=== PATIENT | male | born 1940 | race Caucasian/White ===

== ENCOUNTER 2016-08-26 20:14 | Emergency (ER) | payer MEDICARE, BC ==
[~2016-08-26] VITALS: Ht 172.7 cm; Wt 75.0 kg
[~2016-08-26 20:14] MED LIST: AMBIEN10 MG PO; CRESTOR 10MG10 MG PO; CRESTOR5 MG PO; DURAGESIC50 MCG/HR TD; FIORICET 325 MG1 TA1 PO; FIORICET 325 MG1 TAB; FIORICET W/CODE1 CA1 PO; FLOMAX 0.40.4 MG/CAP PO; FLOMAX0.4 MG PO; IRON; IRON65 M1 PO; LORTAB 5/500 501 TAB PO; MARCAINE 0.5%; MORPHINE 10M10 MG/ML IJ; MUSCLE RELAXER; NEURONTIN300 MG/CAP PO; NORCO 325 MG-51 TAB PO; OXYCODONE5 MG PO; PAIN PUMP; PAMELOR 10MG10 MG PO; PROSCAR 5MG5 MG PO; RESTORIL 77.5 MG/CAP; RESTORIL30 MG PO; ROXICODONE 55 MG/TAB PO; RYBIX ODT50 MG PO; ULTRAM 50MG TAB50 MG; ULTRAM 50MG TAB50 MG PO; VIT B 12; VITAMIN B12100 MCG PO; ZOLOFT 100MG100 MG PO
[2016-08-26 20:16] VITALS: BP 165/82; PULSE 72; TEMP 99.4
== END 2016-08-26 20:57 | disposition home or self-care (01) ==
LOC: COL.ER 20:14
DX: S80.861A Insect bite (nonvenomous), right lower leg, initial encounter (principal); G43.909 Migraine, unspecified, not intractable, without status migrainosus; E78.5 Hyperlipidemia, unspecified; N40.0 Benign prostatic hyperplasia without lower urinary tract symptoms; F32.9 Major depressive disorder, single episode, unspecified; F41.9 Anxiety disorder, unspecified; M19.90 Unspecified osteoarthritis, unspecified site; G89.29 Other chronic pain; M54.9 Dorsalgia, unspecified; M54.2 Cervicalgia; Z98.890 Other specified postprocedural states; W57.XXXA Bitten or stung by nonvenomous insect and other nonvenomous arthropods, initial encounter

== ENCOUNTER → 2018-09-12 | Outpatient (CLI) | payer MEDICARE, BC | LOC: COL.RAD 14:12 | DX: N43.3 Hydrocele, unspecified (principal); N50.89 Other specified disorders of the male genital organs ==

== ENCOUNTER 2019-03-01 10:42 | Emergency (ER) | payer MEDICARE, BC ==
[~2019-03-01] VITALS: Ht 172.7 cm; Wt 75.0 kg
[2019-03-01 10:46] VITALS: TEMP 98.3
[2019-03-01 11:40] VITALS: BP 108/60; PULSE 64
== END 2019-03-01 11:40 | disposition home or self-care (01) ==
LOC: COL.ER 10:42
DX: R51 Headache (principal); I10 Essential (primary) hypertension
CPT/HCPCS: J1100; J2270; J2550

== ENCOUNTER 2019-04-12 20:50 | Emergency (ER) | payer MEDICARE, BC ==
[~2019-04-12] VITALS: Ht 172.7 cm; Wt 75.0 kg
[2019-04-12] MEDS ORDERED: MOVANTIK25 MG PO (21:19)
[2019-04-12 21:55] LABS: ALBUMIN 3.6 gm/dL (3.5-5.0); BILIRUBIN,TOTAL 0.4 mg/dL (0.0-1.0); CALCIUM 8.5 mg/dL (8.4-10.2); CREATININE, serum 2.33 (0.66-1.25); TOTAL PROTEIN 6.5 gm/dL (6.4-8.2)
[2019-04-12 22:09] LABS: BASO # 0.1 (0.0-0.2); BASO % 0.8 % (0.0-2.0); EOS # 0.7 (0.0-0.7); EOS % 10.1 % (0-4.0); GRAN # 4.1 (1.4-6.5); GRAN % 62.4 % (42.2-75.2); HEMOGLOBIN 10.3 g/dl (13.5-18.0); LYMPH % 14.5 % (20.0-51.0); MEAN CELL VOLUME 93 fl (80.0-100.0); MEAN CORPUSCULAR HEMOGLOBIN 28 pg (27.0-31.0); MEAN CORPUSCULAR HGB CONC 30 g/dl (33.0-37.0); MEAN PLATELET VOLUME 10.8 fl (7.4-10.4); MONO # 0.8 (0.1-0.6); MONO % 11.9 % (1.7-9.3); PLATELET COUNT 195 K/mm3 (130-400); RED BLOOD COUNT 3.71 M/mm3 (4.20-5.60); REDCELL DISTRIBUTION WIDTH-CV 15.7 % (11.5-14.5)
[2019-04-12 22:13] LABS: HEMATOCRIT 34.3 % (42.0-52.0)
[2019-04-12 22:33] LABS: COLLECTION METHOD CLEAN CATCH
[2019-04-12 22:47] LABS: PH 5 (5-8); SQUAMOUS EPITHELIAL None Seen /hpf; URINE APPEARANCE Clear; URINE BACTERIA None Seen /hpf; URINE BILIRUBIN Negative (NEGATIVE); URINE BLOOD Negative (NEGATIVE); URINE COLOR Yellow; URINE GLUCOSE Negative (NEGATIVE); URINE KETONE Negative (NEGATIVE); URINE LEUKOCYTE ESTERASE Negative (NEGATIVE); URINE NITRATE Negative (NEGATIVE); URINE PROTEIN(semi-quant) Negative (NEGATIVE); URINE RBC 0-2 /hpf; URINE UROBILINOGEN Negative (NEGATIVE)
[2019-04-12 23:11] VITALS: BP 112/67; PULSE 68; TEMP 98.2
== END 2019-04-12 23:05 | disposition home or self-care (01) ==
LOC: COL.ER 20:50
PROVIDERS: Family Medicine
DX: N28.9 Disorder of kidney and ureter, unspecified (principal); G89.29 Other chronic pain; K59.00 Constipation, unspecified; M54.9 Dorsalgia, unspecified; N40.0 Benign prostatic hyperplasia without lower urinary tract symptoms
CPT/HCPCS: J2405; J7030

== ENCOUNTER 2019-06-12 16:07 | Inpatient (IN) | payer MEDICARE, BC ==
[~2019-06-12] VITALS: Ht 172.7 cm; Wt 71.4 kg
[~2019-06-12 16:07] MED LIST changes: +MOVANTIK25 MG PO
[2019-06-12 16:48] LABS: BASO % 0.4 % (0.0-2.0); EOS # 0.1 (0.0-0.7); EOS % 0.6 % (0-4.0); GRAN # 7.3 (1.4-6.5); GRAN % 81.4 % (42.2-75.2); HEMATOCRIT 38.4 % (42.0-52.0); HEMOGLOBIN 12.2 g/dl (13.5-18.0); LYMPH # 0.8 (1.2-3.4); LYMPH % 8.5 % (20.0-51.0); MEAN CELL VOLUME 88 fl (80.0-100.0); MEAN CORPUSCULAR HEMOGLOBIN 28 pg (27.0-31.0); MEAN CORPUSCULAR HGB CONC 32 g/dl (33.0-37.0); MEAN PLATELET VOLUME 10.8 fl (7.4-10.4); MONO # 0.8 (0.1-0.6); MONO % 8.5 % (1.7-9.3); PLATELET COUNT 284 K/mm3 (130-400); RED BLOOD COUNT 4.39 M/mm3 (4.20-5.60); REDCELL DISTRIBUTION WIDTH-CV 15.7 % (11.5-14.5)
[2019-06-12 17:15] LABS: ALBUMIN 4.3 gm/dL (3.5-5.0); BILIRUBIN,TOTAL 0.7 mg/dL (0.0-1.0); C-REACTIVE PROTEIN 2.7 mg/dL (0.0-0.9); CALCIUM 8.8 mg/dL (8.4-10.2); CREATININE, serum 8.05 (0.66-1.25); POTASSIUM 5.1 mmol/L (3.4-5.0); TOTAL PROTEIN 8.1 gm/dL (6.4-8.2)
[2019-06-12] MEDS ORDERED: ZETIA 10MG TAB10 MG PO (17:17)
[2019-06-12] MEDS ORDERED: ZANAFLEX 4MG TAB4 MG PO (17:19)
[2019-06-12 17:31] LABS: TROPONIN-I 0.21 ng/mL (0.000-0.035)
[2019-06-12 18:26] LABS: INR 1.1 (0.8-3.0); PROTHROMBIN TIME 12.4 SECONDS (9.7-12.8)
[2019-06-12 18:29] LABS: PARTIAL THROMBOPLASTIN TIME 33.9 SECONDS (26.0-37.0)
[2019-06-12 19:50] LABS: COLLECTION METHOD CLEAN CATCH
[2019-06-12 19:59] LABS: MUCOUS Present /lpf; PH 5 (5-8); SQUAMOUS EPITHELIAL None Seen /hpf; URINE APPEARANCE Hazy; URINE BACTERIA Rare /hpf; URINE BILIRUBIN Negative (NEGATIVE); URINE BLOOD 2+ (NEGATIVE); URINE COLOR Yellow; URINE GLUCOSE Negative (NEGATIVE); URINE KETONE Trace (NEGATIVE); URINE LEUKOCYTE ESTERASE Negative (NEGATIVE); URINE NITRATE Negative (NEGATIVE); URINE PROTEIN(semi-quant) Negative (NEGATIVE); URINE RBC 0-2 /hpf; URINE UROBILINOGEN Negative (NEGATIVE)
[2019-06-12 20:06] LABS: MAGNESIUM 1.9 mg/dL (1.6-2.3); PHOSPHOROUS 8.1 mg/dL (2.5-4.5)
[2019-06-12 20:15] VITALS: BP 132/86; PULSE 138; TEMP 98.2
--- NOTE | 2019-06-12 20:30 | NUR ---
Arrived to IMCU 17. Assessment complete. Lungs clear. Heart sounds irregular. Bowels active x4. Pulses strong throughout. No edema noted. INT left forearm and right forarm without complications. Patient alert and orientated x2. Orientated to IMCU. called with security code. Whit SALGADO discussed medication rec with . All questions answered. Call light in reach.
[2019-06-12 20:37] LABS: TSH w REFLEX 1.41 uIU/mL (0.465-4.680)
[2019-06-12 20:40] LABS: CREATININE, serum 7.5 (0.66-1.25)
[2019-06-12] MEDS ORDERED: ULTRAM 50MG TAB50 MG PO (21:18)
[2019-06-12 21:30] VITALS: BP 109/86; PULSE 146
--- NOTE | 2019-06-12 21:46 | NUR ---
Patient BP 109/83. Per NAOMI Sherman give cardizem bolus 5mg and start drip. Verified by EMELY Kapoor.
[2019-06-12 22:00] VITALS: BP 144/81; PULSE 102
[2019-06-13] VITALS (10 sets, daily range): BP systolic 94–142; BP diastolic 52–71; PULSE 55–86; TEMP 97.5–98.7
--- NOTE | 2019-06-13 00:08 | NUR ---
Heparin restarted at 5 ml/hr per protocol
--- NOTE | 2019-06-13 01:06 | NUR ---
Patient heparin increased to 13.1 per Whit TAPE RECORDER REPAIRER. Changed to high dose protocol.
[2019-06-13 06:03] LABS: BASO % 0.5 % (0.0-2.0); EOS # 0.1 (0.0-0.7); EOS % 0.9 % (0-4.0); GRAN # 4.6 (1.4-6.5); HEMOGLOBIN 10.5 g/dl (13.5-18.0); LYMPH # 0.9 (1.2-3.4); LYMPH % 14.3 % (20.0-51.0); MEAN CELL VOLUME 88 fl (80.0-100.0); MEAN CORPUSCULAR HEMOGLOBIN 27 pg (27.0-31.0); MEAN CORPUSCULAR HGB CONC 31 g/dl (33.0-37.0); MEAN PLATELET VOLUME 11.7 fl (7.4-10.4); MONO # 0.8 (0.1-0.6); MONO % 11.8 % (1.7-9.3); PLATELET COUNT 251 K/mm3 (130-400); RED BLOOD COUNT 3.84 M/mm3 (4.20-5.60); REDCELL DISTRIBUTION WIDTH-CV 15.9 % (11.5-14.5)
[2019-06-13 06:04] LABS: HEMATOCRIT 33.7 % (42.0-52.0)
[2019-06-13 06:15] LABS: CALCIUM 8.2 mg/dL (8.4-10.2); CREATININE, serum 7.19 (0.66-1.25); POTASSIUM 4.6 mmol/L (3.4-5.0)
--- NOTE | 2019-06-13 06:26 | NUR ---
Patient heparin remains on high dose protocol at 13ml/hr. Cardizem at 5ml/hr with a pulse of 85 this AM. Otherwise uneventful night. Victor output monitored. Denies needs this AM. Call light in reach.
[2019-06-13 06:29] LABS: TROPONIN-I 0.181 ng/mL (0.000-0.035)
--- NOTE | 2019-06-13 07:05 | NUR ---
Report given to EMELY Moss
--- NOTE | 2019-06-13 07:15 | NUR ---
Report received from EMELY Avalos. pt in bed resting with eyes closed, awakens upon entry, michell needs, will continue to monitor.
--- NOTE | 2019-06-13 08:44 | NUR ---
Assessment charted. Pt rates headache pain at 7 or 8/10, will disucss with hospitalist during rounds as no PRN options are on board right now. Pt resting quietly, tolerating clearl liquid diet well. Oreintedx4, follwoing conversation well. Per Telemetry and monitor pt appears to have been in sinus rhythm for all fo shift. IVF to R a/c with eva simon infusing. L FA has heparin gtt infusing. Denies needs, will conitnue to monitor.
--- NOTE | 2019-06-13 09:16 | NUR ---
PK met with the patient to discuss discharge plan. The patient lives in [place] with his , Alexa (ph#[phone]). He reports independence with ADLs and does not have any DME. The patient's PCP is Dr. Hector Najera and he receives his medications at [facility]. He reports no difficulties obtaining his meds. The patient does not have advanced directives in EMR. He could not recall if he did have them completed. The patient would like to return home upon discharge. PK then contacted the patient's , Alexa, to update and review the above information. Alexa confirmed the above information. She states that the patient has been needing a little bit more help lately, but that she has been able to provide that assistance. She states that the patient does have a DPOA-HC completed and this his DPOA-HC is their daughter, Cee Marcelo. Alexa reports that she will get in contact with their tractor crane operator and have them fax a copy of his advanced directives to PK. PK provided Alexa with PK's phone and fax number. Alexa reports that the plan would be for the patient to return back home upon discharge. PT/OT have been ordered. PK to continue to follow.
--- NOTE | 2019-06-13 12:54 | NUR ---
Discontinue per dr. Keating and start PO meds
--- NOTE | 2019-06-13 15:09 | NUR ---
Called Dr. Osmin Keating regarding heparin gtt, they have decided to keep it going today as the kidney function is still "up in the air".
--- NOTE | 2019-06-13 16:40 | NUR ---
Dr. Solorio completed bedside loop recorder placement with labor delivery specialist staff. Pt tolerated well, resting quietly
--- NOTE | 2019-06-13 17:43 | NUR ---
Report called to EMELY Peter who will resume care of pt on the floor. Pt anticipating transfer to floor. Resting in bed, denies needs, will continue to monitor.
--- NOTE | 2019-06-13 18:07 | NUR ---
Pt brought up to room 310 via w/c with oil house attendant Yinka, all belongings brought to room, setlled pt in bed, Brittani to resume care.
--- NOTE | 2019-06-13 20:15 | NUR ---
Lab called and stated that HepXa was 0.94. Per protocol, heparin drip should be stopped for 1 hour, then restarted at a rate of 2 ml/hr less than current rate. Rate had been at 12 ml/hr. New rate will be at 10 ml/hr after holding for 1 hour. Heparin put on hold at this time.
--- NOTE | 2019-06-13 21:15 | NUR ---
Patient assessed at this time. Alert and oriented, with intermittent confusion. Easily redirected. Denies having pain and discomfort at this time. Peripheral IV to left forearm with NS running at 150 ml/hr. Heparin restarted at this time at 10 ml/hr per protocol. INT to left forearm. Denies SOB and dyspnea. On oxygen at 2 L/min via NC. Respirations even and unlabored. HRR. Telemetry in place. Dressing from loop recorder site CDI. Denies pain and discomfort to area. Capillary refill less than 3 seconds. Non-tenting skin turgor. BSAx4. Abdomen soft and non-tender. Indwelling youngblood catheter patent, and draining clear yellow urine via dependent drainage. No edema. Voices no questions, needs, or concerns at this time. High fall risk precautions in place. Resting in bed with call light within reach.
[2019-06-14 02:49] VITALS: BP 133/78; PULSE 72; TEMP 98.8
--- NOTE | 2019-06-14 03:43 | NUR ---
HepXa 0.58. No change in heparin drip at this time. Continues to run at 10 ml/hr. Recheck in 6 hours.
--- NOTE | 2019-06-14 05:28 | NUR ---
Continues to wear oxygen at 2 L/min via NC. Alert and oriented, occasionally gets confused but easily redirected. Indwelling youngblood catheter with clear yellow urine. NS continues to run at 150 ml/hr. Heparin drip at 10 ml/hr. Voices no questions, needs, or concerns at this time. Resting in bed with call light within reach. High fall risk precautions in place.
[2019-06-14 07:41] LABS: BASO % 0.3 % (0.0-2.0); EOS # 0.2 (0.0-0.7); EOS % 2.3 % (0-4.0); GRAN # 5.2 (1.4-6.5); GRAN % 75.9 % (42.2-75.2); LYMPH # 0.8 (1.2-3.4); LYMPH % 11.6 % (20.0-51.0); MEAN CELL VOLUME 89 fl (80.0-100.0); MEAN CORPUSCULAR HGB CONC 32 g/dl (33.0-37.0); MEAN PLATELET VOLUME 11.6 fl (7.4-10.4); MONO # 0.7 (0.1-0.6); MONO % 9.8 % (1.7-9.3); PLATELET COUNT 239 K/mm3 (130-400); RED BLOOD COUNT 3.25 M/mm3 (4.20-5.60); REDCELL DISTRIBUTION WIDTH-CV 16.1 % (11.5-14.5)
[2019-06-14 07:46] LABS: HEMATOCRIT 28.9 % (42.0-52.0); HEMOGLOBIN 9.1 g/dl (13.5-18.0); MEAN CORPUSCULAR HEMOGLOBIN 28 pg (27.0-31.0)
[2019-06-14 07:55] LABS: CALCIUM 7.9 mg/dL (8.4-10.2); CREATININE, serum 6.25 (0.66-1.25); POTASSIUM 4.5 mmol/L (3.4-5.0)
[2019-06-14 07:57] VITALS: BP 130/66; PULSE 74; TEMP 98
--- NOTE | 2019-06-14 08:20 | NUR ---
Pt awake and alert this morning, talkative, no C/O pain at this time, shift assessment complete, left Pt call light in reach, bed in lowest position.
--- NOTE | 2019-06-14 10:00 | NUR ---
Talked to Pt's spouse about his progress, answered all questions to her satisfaction. Transferred call to Pt after questions.
[2019-06-14 12:37] VITALS: BP 114/62; PULSE 68; TEMP 98.9
--- NOTE | 2019-06-14 13:47 | NUR ---
FOUND PT ON ROOM AIR AND SAT AT 88%. PLACED ON 1L NC.
--- NOTE | 2019-06-14 14:20 | NUR ---
Pt discharged to home, discussed discharge information with Pt and family, escorted Pt to entrance, assisted into vehicle, Pt left with family via private auto.
--- NOTE | 2019-06-14 16:45 | NUR ---
Talked to Pt's son, Stated the family was upset that the physician has not contacted the spouse to update her on his statis, transferred call to scalehouse attendant for resolution and contacted attending physician and let him know the family's request for an update.
--- NOTE | 2019-06-14 17:30 | NUR ---
Patient's son called the hospital and voiced frustration that family had not been updated with patient's status @1630. Patient's son on phone states his brother called this AM, but patient's was still concerned. I spoke with patient's nurse, who then called the hospitalist. I followed up with patient's son at this time. Son on phone voices understanding. States hospitalist called and answered all of his mother's questions. Patient's , Alexa's Patient's Son, Andrea's
--- NOTE | 2019-06-14 18:12 | NUR ---
Pt resting in the room, no complaints today, VS have remained stable.
[2019-06-14 19:51] VITALS: BP 147/71; PULSE 79; TEMP 98.2
--- NOTE | 2019-06-14 20:05 | NUR ---
Resting in bed. Assessment complete. Bases bilaterally dimished. Otherwise clear. Heart sounds normal. Bowels active x4. Pulses strong throughout. Bilateral lower leg edema +1. INT right forearm flushed. IV left forearm infusing NS at 125ml/hr and heparin at 10ml/hr as ordered. Denies pain. Victor to dependent drainage with catheter care complete. Incision to medical chest covered with dressing, CDI. Denies needs at this time. Call light in reach.
--- NOTE | 2019-06-14 22:06 | NUR ---
Resting in bed asleep. Call light in reach.
--- NOTE | 2019-06-14 23:35 | NUR ---
Resting in bed. Denies needs. Call light inreach.
[2019-06-15 00:15] VITALS: BP 100/40; PULSE 56; TEMP 98
[2019-06-15 03:59] VITALS: BP 142/68; PULSE 72; TEMP 98.7
--- NOTE | 2019-06-15 04:00 | NUR ---
Resting in bed. Denies needs. Call light in reach.
--- NOTE | 2019-06-15 06:33 | NUR ---
Patient had uneventful night. Resting in bed this AM. Call light in reach.
[2019-06-15 06:43] LABS: MEAN CELL VOLUME 87 fl (80.0-100.0); MEAN CORPUSCULAR HGB CONC 31 g/dl (33.0-37.0); MEAN PLATELET VOLUME 10.7 fl (7.4-10.4); PLATELET COUNT 237 K/mm3 (130-400); RED BLOOD COUNT 3.07 M/mm3 (4.20-5.60); REDCELL DISTRIBUTION WIDTH-CV 16.3 % (11.5-14.5)
[2019-06-15 06:45] LABS: HEMATOCRIT 26.8 % (42.0-52.0); HEMOGLOBIN 8.4 g/dl (13.5-18.0); MEAN CORPUSCULAR HEMOGLOBIN 27 pg (27.0-31.0)
[2019-06-15 06:52] LABS: ALBUMIN 2.9 gm/dL (3.5-5.0); BILIRUBIN,TOTAL 0.3 mg/dL (0.0-1.0); CREATININE, serum 5.85 (0.66-1.25); MAGNESIUM 1.7 mg/dL (1.6-2.3); POTASSIUM 4.4 mmol/L (3.4-5.0); TOTAL PROTEIN 5.7 gm/dL (6.4-8.2)
[2019-06-15 07:28] VITALS: BP 125/62; PULSE 66; TEMP 97.7
--- NOTE | 2019-06-15 07:39 | NUR ---
Report given to EMELY Read
[2019-06-15 11:29] VITALS: BP 139/98; PULSE 71; TEMP 98.5
[2019-06-15 16:36] VITALS: BP 120/62; PULSE 70; TEMP 98
--- NOTE | 2019-06-15 18:35 | NUR ---
Pt assessment completed and charted, medications administered per APR. Pt is alert, partially oriented, some confused conversation, increased confusion throughout day. Pt only complains of chronic Lt lower back pain which has worsened today. Unable to work with PT d/t back pain. PO pain medication ordered and administered per APR. Pt provided with hot pack. Pt states pain is still there but has improved. Pt receiving IVF @ 125ml/hr and hep gtt at 10ml/hr to LFA IV w/o complications. Hep XA within goal, no change to rate, will recheck in AM. Pt has youngblood catheter draining pale yellow urine, cath care provided. Pt on 2L NC, breathing has been even and unlabored. Pt denies any chest pain, N/V/D. Pt also has RFA INT IV that flushes w/o complications. No further needs expressed.
[2019-06-15 19:10] VITALS: BP 113/62; PULSE 70; TEMP 98.6
--- NOTE | 2019-06-15 19:40 | NUR ---
this nurse contacted Alexa Iniguezen, patients , gave update for this shift, all questions answered, no further needs at this time. Report given to EMELY Morales.
[2019-06-16] VITALS (7 sets, daily range): BP systolic 114–146; BP diastolic 55–70; PULSE 59–78; TEMP 98.3–99.6
--- NOTE | 2019-06-16 06:25 | NUR ---
PT IN BED WITH HOB ELEVATED TO 45 DEGREE ANGLE. DID 2 HOUR NEURO CHECKS AND NO CHANGES NOTED. PT WAS SLEEPING BUT EASILY AWAKEN AND THEN WENT BACK TO SLEEP. PT HAD BED ALARM ON AND CALL LIGHT WITHIN REACH.
[2019-06-16 07:19] LABS: CALCIUM 8.4 mg/dL (8.4-10.2); CREATININE, serum 6.04 (0.66-1.25); PHOSPHOROUS 6.9 mg/dL (2.5-4.5); POTASSIUM 4.5 mmol/L (3.4-5.0)
--- NOTE | 2019-06-16 09:56 | NUR ---
Public Records Officer received Advance Directives via fax then placed them in patient's chart.
--- NOTE | 2019-06-16 11:06 | NUR ---
Pt assessment completed and charted. Medications administered per MAR. Pt is A & partially oriented, pleasantly confused, cooperative with cares. Pt has LFA IV w/ NS @ 50ml/hr and hep gtt @10 ml/hr running w/o complications. Pt also has RFA INT IV that flushes w/o complications. pt currently on 2L NC, satting in upper 90s, will wean down as tolerated. pt has worked with PT twice today, using walker, ambulating well. Pt states his back pain is "ok" as "long as I'm laying here". Pt did received PRN [place] prior to working with therapy per pt request. Pt eating and drinking well. Breathing is even and unlabored. Pt on bowel regimen and has had BM today. This nurse has also talked with , Alexa to give update, all questions answered. No further concerns at this time.
--- NOTE | 2019-06-16 11:16 | NUR ---
Pt hep Xa came back at 0.21, rate increased to 11.5ml/hr. O2 decreased to 1LNC. Next hep Xa lab at 1530.
--- NOTE | 2019-06-16 15:04 | NUR ---
Pt assisted to bathroom and back to bed, using walker, minimal assist. gown changed again, per pt request. Pt had another BM. Belongings brought from , dropped at ER entrance, given to pt. Pt has spoken with on phone today. This nurse informed PARMJIT Shah that this nurse had talked with and given update and the was requesting an update from the physicians as well. No other concerns expressed at this time.
--- NOTE | 2019-06-16 15:21 | NUR ---
Warfarin Initial Dosing Pharmacy Note Ordering Provider: Saritha Keating MD Indication: Atrial fibrillation LABS: INR 1.1 (06/12/19) Recommendation: Will start with Warfarin 5 mg po qHS bridging with heparin drip. Pharmacy will continue to monitor daily INR levels.
--- NOTE | 2019-06-16 16:13 | NUR ---
Accounts Receivable Associate spoke with patient's , Alexa about PT's recommendation for a front wheeled walker. Alexa would like to call her sister this evening because she believes her sister has a walker they can use. Alexa reports if her sister does not have a walker, she will work with SW to obtain a walker. PK spoke with Alexa about Home Health Services. Alexa reports she is not sure if patient will need it and advised it would depend on if it's recommended by the Hospitalist. PK passed this along with PARMIJT Shah. PK to continue to follow.
[2019-06-17] VITALS (12 sets, daily range): BP systolic 103–157; BP diastolic 48–84; PULSE 61–74; TEMP 98.4–99
--- NOTE | 2019-06-17 04:45 | NUR ---
PATIENT HAS HAD AN UNEVENTFUL NIGHT. IN THE HS HE WAS READING LIKE A PORTALS OF PRAYER AND HIS BIBLE. PATIENT HAS DENIED ANY NEEDS OTHER THAN HELPING HIM FIND A CHAPTER IN THE BIBLE. PATIENT DID RECEIVE A PAIN PILL AT [facility] AND THAT SEEMED TO HELP WITH HIS PAIN BECAUSE HE HAS NOT NOTED ANY SINCE. HEP XA WAS IN RANGE/GOAL SO NO CHANGES WERE MADE AND SINCE IT WAS THE SECOND IN RANGE/GOAL, NEXT RECHECK IS THIS AM. WILL REPORT OFF TO DAY SHIFT UPON THEIR ARRIVAL
[2019-06-17 06:33] LABS: MEAN CELL VOLUME 87 fl (80.0-100.0); MEAN CORPUSCULAR HGB CONC 32 g/dl (33.0-37.0); MEAN PLATELET VOLUME 11.3 fl (7.4-10.4); PLATELET COUNT 297 K/mm3 (130-400); RED BLOOD COUNT 3.38 M/mm3 (4.20-5.60); REDCELL DISTRIBUTION WIDTH-CV 16.4 % (11.5-14.5)
[2019-06-17 07:05] LABS: HEMATOCRIT 29.5 % (42.0-52.0); HEMOGLOBIN 9.3 g/dl (13.5-18.0); MEAN CORPUSCULAR HEMOGLOBIN 28 pg (27.0-31.0)
[2019-06-17 08:29] LABS: CALCIUM 8.5 mg/dL (8.4-10.2); CREATININE, serum 6.04 (0.66-1.25); MAGNESIUM 1.7 mg/dL (1.6-2.3); POTASSIUM 4.2 mmol/L (3.4-5.0)
[2019-06-17 08:31] LABS: INR 1.2 (0.8-3.0); PROTHROMBIN TIME 13.6 SECONDS (9.7-12.8)
--- NOTE | 2019-06-17 11:07 | NUR ---
0900: Pt assessment completed and charted. Medications administered per APR. Pt sat in recliner for breakfast, has worked with therapy and walked. Pt states his back pain "is ok" at this time, denies needs for pain medication. Pt has LFA IV w/ NS @ 50 ml/hr and hep gtt running @ 11.5ml/hr. Pt on 1L NC, satting mid 90s, breathing is even and unlabored, denies SOB. Pt denies any dizziness, N/V/D. 2 BMs noted yesterday, refused need for prunes/hot water this morning. No other concerns at this time. 1015: Hep gtt on hold, IVF dc'd per [place]. Pt to have dialysis catheter placed this afternoon. Dr. Tejada has been in to visit with patient. Consent signed and on chart. No other needs at this time.
--- NOTE | 2019-06-17 11:47 | NUR ---
Consent signed and on chart for dialysis catheter placement. Pt states his back pain "is ok" and stated he woulnd't mind taking something for it. Pt received prn [place] per apr. Pt resting comfortably in bed, NPO for lunch. No other needs at this time.
--- NOTE | 2019-06-17 12:13 | NUR ---
First visit from the agricultural equipment sales manager. No needs right now.
--- NOTE | 2019-06-17 14:01 | NUR ---
Mannequin Wig Maker followed up with patient's , Alexa who advised she spoke with her daughter who has a like-new walker for patient. SW also followed up on Home Health. Alexa would like HH services for patient but would like time to review options. PK encouraged Alexa to look at Medicare.gov for list of options and agency ratings. PK will follow up on Home Health Choice tomorrow.
--- NOTE | 2019-06-17 14:19 | NUR ---
SEE MERGE FOR MEDICATION ADMINISTRATION TIMES AND INTRA AND POST SEDATION ASSESSMENTS.
--- NOTE | 2019-06-17 15:22 | NUR ---
Pt back from having dialysis catheter placed. RIJ dialysis catheter site is CDI, covered w/ gauze. Pt is drowsy, laying bed, arouses to name, denies any pain or discomfort. Pt on post op VS monitoring.
--- NOTE | 2019-06-17 18:41 | NUR ---
Pt up to eat dinner, VSS. Pt slept quite a bit after procedure. RIJ dialysis cath site is CDI. No further needs.
--- NOTE | 2019-06-17 19:40 | NUR ---
Patient assessed at this time. Alert and oriented with intermittent confusion. Reported level 5 pain to back. Given PRN [place] as requested for pain. Peripheral IVs to left and right forearms. Denies SOB and dyspnea. On oxygen at 1 L/min via NC. Respirations even and unlabored. LS CTA. Denies chest pain and discomfort, except to [facility] surgerical site. HRR. Telemetry in place. Capillary refill less than 3 seconds. Non-tenting skin turgor. Dressing to loop recorder site is CDI. Dressing to NDJ dialysis catheter is CDI. BSAx4. Abdomen soft and non-tender. Indwelling youngblood catheter patent, with clear yellow urine. 2+ edema BLE. Voices no questions, needs, or concerns at this time. Resting in bed with call light within reach. High fall risk precautions in place.
[2019-06-17 21:13] LABS: HEPATITIS B SURFACE ANTIGEN Negative (Negative)
[2019-06-17 21:14] LABS: HEPATITIS C VIRUS ANTIBODY Negative (Negative)
[2019-06-17 23:18] LABS: HEPATITIS B SURFACE ANTIBODY 10.6 (())
[2019-06-18 03:26] VITALS: BP 150/75; PULSE 68; TEMP 98.4
--- NOTE | 2019-06-18 06:28 | NUR ---
Denied having pain and discomfort. Dressing to Hemodialysis site is CDI. Did not want bowel regimen this morning, stating he is no longer constipated.
[2019-06-18 08:14] LABS: CALCIUM 8.8 mg/dL (8.4-10.2); CREATININE, serum 6.29 (0.66-1.25); MAGNESIUM 1.9 mg/dL (1.6-2.3); PHOSPHOROUS 6.5 mg/dL (2.5-4.5); POTASSIUM 4.3 mmol/L (3.4-5.0)
[2019-06-18 09:41] LABS: BASO % 0.3 % (0.0-2.0); EOS # 0.4 (0.0-0.7); EOS % 4.3 % (0-4.0); GRAN # 6.1 (1.4-6.5); GRAN % 69.8 % (42.2-75.2); LYMPH # 1.2 (1.2-3.4); LYMPH % 13.3 % (20.0-51.0); MEAN CELL VOLUME 88 fl (80.0-100.0); MEAN CORPUSCULAR HGB CONC 31 g/dl (33.0-37.0); MONO % 11.4 % (1.7-9.3); PLATELET COUNT 298 K/mm3 (130-400); RED BLOOD COUNT 3.59 M/mm3 (4.20-5.60); REDCELL DISTRIBUTION WIDTH-CV 16.9 % (11.5-14.5)
[2019-06-18 09:45] LABS: ALBUMIN 3.4 gm/dL (3.5-5.0); CALCIUM 8.8 mg/dL (8.4-10.2); CREATININE, serum 6.27 (0.66-1.25); PHOSPHOROUS 6.6 mg/dL (2.5-4.5); POTASSIUM 4.4 mmol/L (3.4-5.0)
[2019-06-18 09:49] LABS: HEMATOCRIT 31.5 % (42.0-52.0); HEMOGLOBIN 9.8 g/dl (13.5-18.0); MEAN CORPUSCULAR HEMOGLOBIN 27 pg (27.0-31.0)
[2019-06-18 11:03] LABS: INR 1.1 (0.8-3.0)
[2019-06-18 12:00] VITALS: BP 166/73; PULSE 70; TEMP 97.3
--- NOTE | 2019-06-18 13:36 | NUR ---
PK contacted the patient's , Alexa regarding HHS choice. The choice is [facility]. PK faxed referral. Awaiting response.
[2019-06-18 13:57] VITALS: BP 161/73; PULSE 65
[2019-06-18 18:00] VITALS: BP 152/79; PULSE 71; TEMP 97.8
--- NOTE | 2019-06-18 19:04 | NUR ---
patient had dialysis today, one episode of nausea and large loose stool. patient refuse zofran. heart rhythm iw within limit. breath sound is clear. patient complained of headache, patient received hydrocodone and tylenol for pain. HepXA is 0.00 before heparin drip was started. report given to night nurse - EMELY Wilkins.
--- NOTE | 2019-06-18 19:09 | NUR ---
HEPXA recheck is at 0010 on 06/19/19
--- NOTE | 2019-06-18 19:30 | NUR ---
Patient assessed at this time. Reported pain to back, level 5. Given PRN [place] as requested. Voices no furhter questions, needs, or concerns at this time. On room air at this time. Denies SOB and dyspnea. High fall risk precautions in place. Call light within reach.
[2019-06-18 20:06] VITALS: BP 144/69; PULSE 69; TEMP 98.6
[2019-06-19] VITALS (7 sets, daily range): BP systolic 126–166; BP diastolic 57–85; PULSE 62–75; TEMP 97.5–98.8
--- NOTE | 2019-06-19 01:50 | NUR ---
Patient's HepXa 1.24. Stopped heparin drip. Will recheck in two hours per protocol.
--- NOTE | 2019-06-19 04:19 | NUR ---
Patient has had no further complaints of pain or discomfort this shift. Has been resting in bed with call light within reach. Denies having any questions, needs, or concerns at this time. Resting in bed with call light within reach.
[2019-06-19 04:26] LABS: CALCIUM 8.6 mg/dL (8.4-10.2); CREATININE, serum 4.72 (0.66-1.25); MAGNESIUM 1.8 mg/dL (1.6-2.3); POTASSIUM 3.9 mmol/L (3.4-5.0)
[2019-06-19 04:28] LABS: INR 1.2 (0.8-3.0); PROTHROMBIN TIME 14.2 SECONDS (9.7-12.8)
--- NOTE | 2019-06-19 04:38 | NUR ---
HepXa 0.49. Restarted Heparin at 12.5 ml/hr per protocol (had previously been running at 15.5, new order to decrease by 3 ml/hr per protocol). Will recheck HepXa in 6 hours.
--- NOTE | 2019-06-19 09:14 | NUR ---
Optics Engineer spoke with [facility] and was advised that they could likely accept referral. SW was advised that if patient discharges over the weekend, they may look at Sunday admit. SW to continue to follow.
--- NOTE | 2019-06-19 10:20 | NUR ---
Harvest Crew Supervisor attended clinical rounds with the team. Patient advised he has a migraine headache. Patient to have youngblood catheter removed today. SW to continue to follow.
[2019-06-19 10:51] LABS: BASO % 0.3 % (0.0-2.0); EOS # 0.2 (0.0-0.7); EOS % 1.9 % (0-4.0); GRAN # 7.1 (1.4-6.5); GRAN % 78.5 % (42.2-75.2); LYMPH # 0.7 (1.2-3.4); LYMPH % 7.9 % (20.0-51.0); MEAN CELL VOLUME 86 fl (80.0-100.0); MEAN CORPUSCULAR HGB CONC 32 g/dl (33.0-37.0); MEAN PLATELET VOLUME 10.8 fl (7.4-10.4); MONO # 0.9 (0.1-0.6); MONO % 10.3 % (1.7-9.3); PLATELET COUNT 276 K/mm3 (130-400); RED BLOOD COUNT 3.51 M/mm3 (4.20-5.60); REDCELL DISTRIBUTION WIDTH-CV 16.5 % (11.5-14.5)
[2019-06-19 10:55] LABS: HEMATOCRIT 30.2 % (42.0-52.0); HEMOGLOBIN 9.7 g/dl (13.5-18.0); MEAN CORPUSCULAR HEMOGLOBIN 28 pg (27.0-31.0)
--- NOTE | 2019-06-19 17:26 | NUR ---
Pt complain of upset stomach after dialysis, admin Zofran. patient is resting in bed at this time. He spoke with his today.
--- NOTE | 2019-06-19 19:11 | NUR ---
PATIENT DE-ACESS PORT TODAY, IT WAS REASSESSED BY OLGA-CHARGE NURSE. PATIENT IS CONFUSED. MRI WAS ATTEMPTED TWICE BUT PATIENT DECLINED. 1MG OF ATIVAN X2 WAS ADMINISTERED. PATIENT IS DISORIETED, NO SUCCESS WITH MRI. MRI WILL ATTEMPTED TOMORROW WITH SEDATION. ANESTHESIOLOGIST WAS CONSULTED. MRI DEPT AND ANESTHESIOLOGIST AGREE TO DO PROCEDURE AT 1500 ON 06/19. Katie, was informed of this plan.
--- NOTE | 2019-06-19 19:30 | NUR ---
Received report from Karyn. Patient was complaining of migraine, pain of 6/10. He just took the Fioricet at 1724H. With youngblood catheter draining clear, yellow urine. With INT on left and right forearm. With dialysis catheter on the right chest.
--- NOTE | 2019-06-19 21:40 | NUR ---
Noted to have orders for discontinue of youngblood catheter since this morning but it was not removed yet. Informed patient there's an order for discontinuation of youngblood catheter. Provided urinal at the bedside. Put some pull ups on the patient. INT on right forearm is not flushing well anymore. Noted to have some leak surrounding the INT and this nurse removed it. INT on his right forearm, still flushing well.
[2019-06-20] VITALS (7 sets, daily range): BP systolic 155–173; BP diastolic 79–91; PULSE 66–76; TEMP 98.4–99
[2019-06-20 06:30] LABS: HEMATOCRIT 27.9 % (42.0-52.0); MEAN CELL VOLUME 87 fl (80.0-100.0); MEAN CORPUSCULAR HEMOGLOBIN 28 pg (27.0-31.0); MEAN CORPUSCULAR HGB CONC 32 g/dl (33.0-37.0); MEAN PLATELET VOLUME 11.5 fl (7.4-10.4); PLATELET COUNT 276 K/mm3 (130-400); RED BLOOD COUNT 3.21 M/mm3 (4.20-5.60); REDCELL DISTRIBUTION WIDTH-CV 16.6 % (11.5-14.5)
[2019-06-20 06:42] LABS: ALBUMIN 3.2 gm/dL (3.5-5.0); BILIRUBIN,TOTAL 0.3 mg/dL (0.0-1.0); CALCIUM 8.6 mg/dL (8.4-10.2); CREATININE, serum 3.62 (0.66-1.25); POTASSIUM 4.1 mmol/L (3.4-5.0)
--- NOTE | 2019-06-20 06:42 | NUR ---
Patient states his headache is much better now that last night. He didn't ask for any pain meds. He was able to urinate 3x in the bathroom after removal of youngblood catheter. He verbalizes that he was hoping he could go home already. Will endorse to day [facility] nurse.
[2019-06-20 07:40] LABS: PROTHROMBIN TIME 48.8 SECONDS (9.7-12.8)
--- NOTE | 2019-06-20 08:00 | NUR ---
Patient resting in bedside recliner at this time. Patient is alert and oriented, answers questions appropriately. Patient currently denies pain or needs, call light within reach.
--- NOTE | 2019-06-20 11:20 | NUR ---
Received a call from dialysis stating that patient had a headache and was requesting PRN medication. Administered medication per order, patient rates pain at 7/10 but denies nausea. No further needs at this time, patient remains in dialysis.
--- NOTE | 2019-06-20 15:09 | NUR ---
Insecticide Sprayer collaborated with Namita Nurse Practitioner and PARMJIT Brumfield to discuss discharge date. SW contacted patient's , Alexa who advised she could make it work to discharge patient tonight but would feel more comfortable with tomorrow as she feels overwhelmed with the short notice. Per PARMJIT Brumfield patient will likely discharge tomorrow. PK provided this update to Alexa. PK also advised Alexa that [facility] referral and would admit patient on Sunday. Alexa is agreeable to this. PK to continue to follow.
--- NOTE | 2019-06-20 18:23 | NUR ---
Patient continues to report a headache, will administer PRN medication at earliest oppertunity. Patient denies further needs at this time, call light within reach.
--- NOTE | 2019-06-20 18:40 | NUR ---
PT REPORT RECEIVED FROM JULIAN RN AT BEDSIDE. PT IS RESTING IN BED PEACEFULLY WITH NO C/O PAIN AND NO S/S OF DISTRESS. CALL LIGHT WITHIN REACH. WILL CONTINUE TO MONITOR.
[2019-06-21] VITALS (8 sets, daily range): BP systolic 100–164; BP diastolic 41–109; PULSE 54–76; TEMP 98–98.6
--- NOTE | 2019-06-21 03:29 | NUR ---
PT HAS HAD A QUIET RESTFULL NIGHT AND HAS SPENT THE SHIFT IN BED ALTERNATING BETWEEN HAVING EYES OPEN AND CLOSED. PT HAS HAD NO C/O PAIN AND NO STATED WANTS/NEEDS THROUGH THE SHIFT. PT HAS BEEN COMPLIANT WITH CARE AND MEDICATION REGIMEN. PT WAS NOTED TO HAVE ELEVATED BP'S TWICE THAT WAS REPORTED BY LODGING FACILITIES MANAGER. THIS HEAD GREENSKEEPER REASSESED BP AND EACH TIME THE BP WAS NOTED TO HAVE DROPPED BELOW PARAMETERS AND DID NOT REQUIRE INTERVENTIONS. PT HAS BEEN EASILY AROUSED AND HAS BEEN IN A PLEASANT MOOD THROUGHOUT THE SHIFT. CALL LIGHT REMAINS IN REACH AND BEVERAGE IS ON THE BEDSIDE TABLE. WILL CONTINUE TO MONITOR.
--- NOTE | 2019-06-21 05:06 | NUR ---
Pt remains in stable condition with no s/s of distress noted. Pt assisted from restroom after he ambulated there without assistance due to needing to go "now" and unable to await staff's arrival. Pt has call light at his side. Will continue to monitor.
[2019-06-21 06:29] LABS: CALCIUM 8.7 mg/dL (8.4-10.2); CREATININE, serum 2.8 (0.66-1.25); POTASSIUM 3.9 mmol/L (3.4-5.0); PROTHROMBIN TIME 86.7 SECONDS (9.7-12.8)
--- NOTE | 2019-06-21 06:45 | NUR ---
Pt report given to dayshift nurse at bedside
--- NOTE | 2019-06-21 18:31 | NUR ---
Patient is alert and oriented. complained of headache at 8/10 and nausea. pain got better to 4/10 after administering tramadol. LAB: TP is 86.7, INR is 7. Call light within reach.
--- NOTE | 2019-06-21 21:00 | NUR ---
Pt in bed, assisted to bathroom to void, gait steady. Back to bed supervised. Pt is alert and oriented x4. Has right IJ Dialysis catheter, RLQ pain pump with nerve stimulator in rt buttock for neck pain. Has SL to right FA without redness or swelling. Reports migraine increased with smells, medicated with Fiorcet with HS meds. Bed alarm on.
--- NOTE | 2019-06-21 21:00 | NUR ---
Pt in bed, is alert and oriented x4. Reports headache has improved, still would like a Fiorcet with bedtime meds. Assisted to bathroom to void and back to bed. SCD's on bilaterally. SL to right FA without redness or swelling. Has a right IJ dialysis catheter, right abd defib and right lower back/upper buttock with pain pump. Will monitor for changes.
[2019-06-22 03:29] VITALS: BP 159/77; PULSE 66; TEMP 98.6
--- NOTE | 2019-06-22 05:34 | NUR ---
Takes Protonix at this time for mild nausea, [place] given for headache 10.
[2019-06-22 07:13] LABS: BASO % 0.4 % (0.0-2.0); EOS # 0.3 (0.0-0.7); EOS % 3.1 % (0-4.0); GRAN # 7.2 (1.4-6.5); LYMPH # 1.1 (1.2-3.4); LYMPH % 10.9 % (20.0-51.0); MEAN CELL VOLUME 89 fl (80.0-100.0); MEAN CORPUSCULAR HGB CONC 31 g/dl (33.0-37.0); MEAN PLATELET VOLUME 11.3 fl (7.4-10.4); MONO # 1.1 (0.1-0.6); PLATELET COUNT 274 K/mm3 (130-400); RED BLOOD COUNT 3.25 M/mm3 (4.20-5.60); REDCELL DISTRIBUTION WIDTH-CV 16.6 % (11.5-14.5)
[2019-06-22 07:15] LABS: HEMATOCRIT 28.9 % (42.0-52.0); MEAN CORPUSCULAR HEMOGLOBIN 28 pg (27.0-31.0)
[2019-06-22 07:16] LABS: CALCIUM 8.5 mg/dL (8.4-10.2); CREATININE, serum 3.81 (0.66-1.25); POTASSIUM 3.5 mmol/L (3.4-5.0)
[2019-06-22 07:28] LABS: INR 7.5 (0.8-3.0); PROTHROMBIN TIME 93.6 SECONDS (9.7-12.8)
[2019-06-22 07:32] VITALS: BP 178/82; PULSE 78; TEMP 98.8
[2019-06-22 11:33] VITALS: BP 162/73; PULSE 72; TEMP 98.6
--- NOTE | 2019-06-22 12:45 | NUR ---
SW spoke with Patient's nurse who indicated that patients PTINR is still high. Possible discharge will be 06/22/2019. SW will continue to follow. Patient does have HH through [facility].
--- NOTE | 2019-06-22 14:41 | NUR ---
Pt resting in room, has no c/o pain or discomfort. Needs nothing at this time. Will continue to monitor.
[2019-06-22 15:31] VITALS: BP 154/73; PULSE 72; TEMP 98.6
--- NOTE | 2019-06-22 19:14 | NUR ---
Report given to EMELY Iverson.
[2019-06-22 20:00] VITALS: BP 174/78; PULSE 71; TEMP 99.1
[2019-06-22 20:10] VITALS: BP 162/78
--- NOTE | 2019-06-22 20:10 | NUR ---
Report received. Assumed care for refrigerator repairman. Assessment complete. VS with elevated BP. Repeated manually by this nurse-162/78. IS due for HS Metoprolol. Will give now and repeat. Currently denies pain/shortness of breath/nausea. Neuro checks WNL. INT to right FA flushes without difficulty. Denies questions/concerns. Call light in reach. Will monitor.
--- NOTE | 2019-06-22 20:40 | NUR ---
To room 310 via bed from PACU. Post op vitals initiated. Med rec clarified. Admission assessment complete. Denies shortness of breath/nausea/pain. Requesting food. Given sugar free jello and intstructed if tolerates will give more to eat. Verbalizes understanding. Plan of care discussed for pain control and straining urine. Verbalizes understanding. Instructed to call before attempting to get out of bed. Verbalizes understanding. Call light in reach. Will monitor.
[2019-06-23] VITALS (8 sets, daily range): BP systolic 122–175; BP diastolic 70–88; PULSE 62–88; TEMP 97.7–99.2
--- NOTE | 2019-06-23 | NUR ---
Report received from PCT of elevated BP as well as increase in pain-rating 6/10 to head. States he regulary has headaches. Manual BP done at this time 158/78. Burton one tab given per dr order. Will monitor.
[2019-06-23 06:01] LABS: BASO # 0.1 (0.0-0.2); BASO % 0.5 % (0.0-2.0); EOS # 0.4 (0.0-0.7); EOS % 3.8 % (0-4.0); GRAN # 7.1 (1.4-6.5); GRAN % 74.1 % (42.2-75.2); HEMATOCRIT 31.5 % (42.0-52.0); HEMOGLOBIN 9.9 g/dl (13.5-18.0); LYMPH # 1.1 (1.2-3.4); LYMPH % 11.3 % (20.0-51.0); MEAN CELL VOLUME 89 fl (80.0-100.0); MEAN CORPUSCULAR HEMOGLOBIN 28 pg (27.0-31.0); MEAN CORPUSCULAR HGB CONC 31 g/dl (33.0-37.0); MEAN PLATELET VOLUME 10.6 fl (7.4-10.4); PLATELET COUNT 274 K/mm3 (130-400); RED BLOOD COUNT 3.54 M/mm3 (4.20-5.60); REDCELL DISTRIBUTION WIDTH-CV 16.5 % (11.5-14.5)
[2019-06-23 06:07] LABS: INR 3.2 (0.8-3.0)
[2019-06-23 06:22] LABS: ALBUMIN 3.6 gm/dL (3.5-5.0); CALCIUM 8.4 mg/dL (8.4-10.2); CREATININE, serum 4.12 (0.66-1.25); PHOSPHOROUS 4.2 mg/dL (2.5-4.5); POTASSIUM 3.5 mmol/L (3.4-5.0)
--- NOTE | 2019-06-23 16:29 | NUR ---
DIALYSIS REPORT 1000ML OFF BP 177Sunday FOR DIALYSIS AGAIN
--- NOTE | 2019-06-23 16:46 | NUR ---
The patient to have an x-ray and the team wants him weaned off oxygen before discharge. PK contacted Claudia with [facility] for an update. Will continue to monitor.
[2019-06-24 00:50] VITALS: BP 152/77; PULSE 63; TEMP 98.6
[2019-06-24 04:44] VITALS: BP 148/74; PULSE 65; TEMP 98.2
[2019-06-24 06:50] LABS: INR 3.4 (0.8-3.0); PROTHROMBIN TIME 41.3 SECONDS (9.7-12.8)
[2019-06-24 08:11] VITALS: BP 160/67; PULSE 68; TEMP 98.7
--- NOTE | 2019-06-24 11:13 | NUR ---
RT exercise oximetry was ordered for the patient. Will continue to monitor.
[2019-06-24] MEDS ORDERED: LOPRESSOR 550 MG/TAB PO (11:26)
[2019-06-24] MEDS ORDERED: MULTAQ400 MG PO (11:26)
[2019-06-24] MEDS ORDERED: NORVASC 5MG5 MG/TAB PO (11:26)
[2019-06-24 11:42] VITALS: BP 162/48; PULSE 68; TEMP 98.3
--- NOTE | 2019-06-24 11:54 | NUR ---
Manager Contracting met with patient to review IM form. SW read IM aloud to patient who verbalized understanding and gave SW permission to sign on his behalf. SW contacted patient's , Alexa to notify her of discharge. SW contacted Priyanka at [facility] and faxed discharge orders. SW to continue to monitor for oxygen needs.
--- NOTE | 2019-06-24 12:28 | NUR ---
Patient called and wanted to get up to get ready to go home. His nurse was called and she will be helping him when the discharge papers are completed. Patient was updated and voiced understanding.
--- NOTE | 2019-06-24 12:33 | NUR ---
Patient got up with out using his call light and was found walking to the bathroom using his walker, alarm sounding. This nurse asked patient what he needed and he reported that he needed to go to the bathroom. Patient was stable with walking was independent with toileting himself, able to pull pants down and up and was able to clean hands independently and walk with walker to his recliner. Will continue to monitor.
--- NOTE | 2019-06-24 13:13 | NUR ---
PATIENT DID NOT QUALITY FOR HOME OXYGEN. PATIENT STAYED ABOVE 90% DURING EXERCISE.
--- NOTE | 2019-06-24 14:09 | NUR ---
Patient does not require home oxygen. Patient was picked up by and went home with [facility]. No additional needs at this time.
== END 2019-06-24 13:45 | disposition home health service (06) | DRG 981 ==
LOC: COL.ER 16:07 → MEDICAL 18:55 → IMCU 18:55 → MEDICAL 06-13 18:11
PROVIDERS: Emergency Medicine; Family Medicine; Hospitalist; Internal Medicine; Internal Medicine Nephrology; Nurse Practitioner Family; Physician Assistant; ADMIT Student in an Organized Health Care Education/Training Program
PROC: 0JH632Z Insertion of Monitoring Device into Chest Subcutaneous Tissue and Fascia, Percutaneous Approach (ICD-10-PCS; 2019-06-13)
PROC: 02HV33Z Insertion of Infusion Device into Superior Vena Cava, Percutaneous Approach (ICD-10-PCS; principal; 2019-06-17)
PROC: 5A1D70Z Performance of Urinary Filtration, Intermittent, Less than 6 Hours Per Day (ICD-10-PCS; 2019-06-19)
DX: N17.9 Acute kidney failure, unspecified (principal); I21.A1 Myocardial infarction type 2; E87.2 Acidosis; G93.40 Encephalopathy, unspecified; I48.92 Unspecified atrial flutter; I24.8 Other forms of acute ischemic heart disease; N18.9 Chronic kidney disease, unspecified; E87.5 Hyperkalemia; R73.9 Hyperglycemia, unspecified; G43.909 Migraine, unspecified, not intractable, without status migrainosus; I48.91 Unspecified atrial fibrillation; N40.0 Benign prostatic hyperplasia without lower urinary tract symptoms; D63.1 Anemia in chronic kidney disease; K25.9 Gastric ulcer, unspecified as acute or chronic, without hemorrhage or perforation; K59.03 Drug induced constipation; F32.9 Major depressive disorder, single episode, unspecified; E78.5 Hyperlipidemia, unspecified; G47.00 Insomnia, unspecified; K80.80 Other cholelithiasis without obstruction; M47.9 Spondylosis, unspecified; E83.39 Other disorders of phosphorus metabolism; R74.0 Nonspecific elevation of levels of transaminase and lactic acid dehydrogenase [LDH]; G89.29 Other chronic pain; E86.0 Dehydration; M54.9 Dorsalgia, unspecified; K59.09 Other constipation; M54.2 Cervicalgia; F17.290 Nicotine dependence, other tobacco product, uncomplicated; Z79.891 Long term (current) use of opiate analgesic
CPT/HCPCS: 99231-AI; 99232-AI; 99233-AI; 99239; C1764; C9113; J0690; J1200; J1644; J2175; J2250; J2405; J2765; J2916; J3010; J7030; Q5106

== ENCOUNTER 2019-07-15 05:54 | Outpatient (CLI) | payer MEDICARE, BC ==
--- NOTE | 2019-07-14 15:58 | NUR ---
IS WALKING AND WANTS TO REVIEW MEDICAL HISTORY QUESTIONS WITH HER PER PT. WILL RETURN PHONE CALL.
[~2019-07-15] VITALS: Ht 172.7 cm; Wt 67.3 kg
[2019-07-15] VITALS (9 sets, daily range): BP systolic 111–153; BP diastolic 68–82; PULSE 60–65; TEMP 98.2
[~2019-07-15 05:54] MED LIST changes: +LOPRESSOR 550 MG/TAB PO; +MULTAQ400 MG PO; +NORVASC 5MG5 MG/TAB PO; +ZANAFLEX 4MG TAB4 MG PO; +ZETIA 10MG TAB10 MG PO
[2019-07-15] MEDS ORDERED: NORVASC 5MG5 MG/TAB PO (06:32)
[2019-07-15] MEDS ORDERED: MULTAQ400 MG PO (06:35)
[2019-07-15] MEDS ORDERED: LOPRESSOR 550 MG/TAB PO (06:36)
[2019-07-15] MEDS ORDERED: ELIQUIS 2.5 PO (06:40)
--- NOTE | 2019-07-15 08:26 | NUR ---
SEE MERGE FOR MEDICATION ADMINISTRATION TIMES AND INTRA AND POST SEDATION ASSESSMENTS.
--- NOTE | 2019-07-15 09:15 | NUR ---
Pt is back from procedure, bs report from Roro RN. Pt has gauze dressing with tegaderm at Tunneled catheter insertion site. Approx 3/4 of gauze appears saturated with serosanguinous drainage. will continue to monitor this site with plan to change dressing after checking with Dr. Tejada. Pt is awake and alert at handoff, although he does close eyes and fall asleep easily as he did before the procedure. Pt able to have hob elevated and drink some water with no problem.
--- NOTE | 2019-07-15 10:55 | NUR ---
Pt has done well during recovery, he is awake and alert ready for departure. IV has been dc'd with cath intact, dressing applied. I spoke with Dr. Tejada and updated him on condition of dressing, verbal okay to change dressing. I changed dressing using sterile technique, cleaned area with hibiclens, used skin prep, and dressed site with sterile 4x4 folded, and tegaderm. Oozing appears to have stopped. Pt plans to go to dialysis appt this afternoon. He is escorted to exit via wheelchair.
== END 2019-07-15 11:00 | disposition home or self-care (01) ==
LOC: COL.CAR 05:54
DX: T82.41XA Breakdown (mechanical) of vascular dialysis catheter, initial encounter (principal); N19 Unspecified kidney failure; Z90.89 Acquired absence of other organs; Z87.891 Personal history of nicotine dependence
CPT/HCPCS: C1769; J1644; J2250; J3010

== ENCOUNTER → 2019-08-07 | Outpatient (CLI) | payer MEDICARE, BC ==
[~2019-08-07] MED LIST changes: +ELIQUIS 2.5 PO
== END ==
LOC: COL.VAS 13:07
DX: T82.49XA Other complication of vascular dialysis catheter, initial encounter (principal); N18.9 Chronic kidney disease, unspecified; Z99.2 Dependence on renal dialysis

== ENCOUNTER → 2019-11-20 | Outpatient (CLI) | payer MEDICARE, BC ==
[~2019-11-20] VITALS: Ht 172.7 cm; Wt 66.2 kg
[~2019-11-20] MED LIST changes: +RESTORIL 1515 MG/CAP PO; +TOPROL XL 25MG25 MG PO
[2019-11-20 08:36] VITALS: BP 96/57; PULSE 73
--- NOTE | 2019-11-20 09:00 | NUR ---
Procedure canceled due to pt having taken Eliquis. Rescheduled and information given to pt. and called and talked to regarding change and instructions given to the about holding the eliquis.
== END ==
LOC: COL.RAD 08:15
DX: Z53.9 Procedure and treatment not carried out, unspecified reason (principal); Z20.828 Contact with and (suspected) exposure to other viral communicable diseases

== ENCOUNTER → 2019-11-27 | Outpatient (CLI) | payer MEDICARE, BC ==
[~2019-11-27] VITALS: Ht 172.7 cm; Wt 66.7 kg
[2019-11-27 12:05] VITALS: BP 96/59; PULSE 66
[2019-11-27 13:00] VITALS: BP 116/67; PULSE 69
== END ==
LOC: COL.RAD 11:33
DX: N18.6 End stage renal disease (principal); Z99.2 Dependence on renal dialysis

== ENCOUNTER 2020-03-30 16:50 | Inpatient (IN) | payer MEDICARE, BC ==
[~2020-03-30] VITALS: Ht 172.7 cm; Wt 63.7 kg
[2020-04-08 08:00] VITALS: BP 107/58; PULSE 72; TEMP 98
[2020-04-08] MEDS ORDERED: FLOMAX 0.40.4 MG/CAP PO (08:25)
[2020-04-08] MEDS ORDERED: PRIL40 PO (08:28)
[2020-04-08] MEDS ORDERED: ZOLOFT 100MG100 MG PO (08:29)
[2020-04-08] MEDS ORDERED: AURYXIA1 GM PO (08:33)
[2020-04-08] MEDS ORDERED: CLARITIN 1010 MG/TAB PO (08:34)
[2020-04-08 09:40] LABS: BASO # 0.1 (0.0-0.2); BASO % 1.2 % (0.0-2.0); EOS # 0.6 (0.0-0.7); EOS % 14.3 % (0-4.0); GRAN # 1.9 (1.4-6.5); GRAN % 44.7 % (42.2-75.2); HEMOGLOBIN 10.9 g/dl (13.5-18.0); LYMPH # 0.9 (1.2-3.4); LYMPH % 22.3 % (20.0-51.0); MEAN CELL VOLUME 102 fl (80.0-100.0); MEAN CORPUSCULAR HEMOGLOBIN 30 pg (27.0-31.0); MEAN CORPUSCULAR HGB CONC 30 g/dl (33.0-37.0); MONO # 0.7 (0.1-0.6); MONO % 17.3 % (1.7-9.3); PLATELET COUNT 222 K/mm3 (130-400); REDCELL DISTRIBUTION WIDTH-CV 15.9 % (11.5-14.5)
[2020-04-08 09:44] LABS: HEMATOCRIT 36.6 % (42.0-52.0); INR 1.3 (0.8-3.0); PROTHROMBIN TIME 14.5 SECONDS (9.7-12.8)
[2020-04-08 09:50] LABS: ALBUMIN 3.9 gm/dL (3.5-5.0); BILIRUBIN,TOTAL 0.3 mg/dL (0.0-1.0); CALCIUM 8.2 mg/dL (8.4-10.2); CREATININE, serum 3.25 (0.66-1.25); MAGNESIUM 2.1 mg/dL (1.6-2.3); POTASSIUM 4.6 mmol/L (3.4-5.0); TOTAL PROTEIN 6.5 gm/dL (6.4-8.2)
--- NOTE | 2020-04-08 10:56 | NUR ---
Extension Service Supervisor met with the patient to complete intake. The patient lives in [place] with his , Alexa. The patient denies DME use and is independent. The patient's PCP is Dr. Najera and patient receives medications from [facility]. The patient does not have advanced directives but was interested in DPOA-HC form. Form provided. The patient plans to return home at discharge and his will provide tranportation. There are no additional needs.
--- NOTE | 2020-04-08 12:17 | NUR ---
Initial dose of amiodarone given. NOtified RT to do an EKG in 2 hours. Discussed possible side affects with patient and to notify us of any changes. Loop recorder reading completed as ordered. Dr Vaughn consulted. No other changes at this time. Call light within reach.
[2020-04-08 15:54] VITALS: BP 109/75; PULSE 72; TEMP 97.8
--- NOTE | 2020-04-08 18:30 | NUR ---
Patient has been doing well today. His brought his device to turn off the pain pump for the EKG's. She stated he will need help with doing it. Patient will be having dialysis tomorrow, either early in the morning or close to lunch time. He denies any issues since starting the amiodarone. His PFT was completed this afternoon. No other changes at this time. Call light within reach.
[2020-04-08 19:29] VITALS: BP 116/58; PULSE 69; TEMP 98.1
--- NOTE | 2020-04-08 22:09 | NUR ---
Pt medicated with HS meds including Tramadol 50mg, Melatonin 3mg, and Zanaflex 4mg po. Is alert and oriented x4. Has SL to left hand, flushes well. Pain pump to RLQ. Dialysis fistula to right forearm. Up in room with steady gait.
[2020-04-08 23:41] VITALS: BP 113/56; PULSE 68; TEMP 98.1
[2020-04-09 04:01] VITALS: BP 110/60; PULSE 67; TEMP 98
--- NOTE | 2020-04-09 05:30 | NUR ---
Pt up to bathroom to void. Takes AM med as well as a Fioricet for migraine. Was able to help pt turn pain pump off for EKG and turn back on after EKG completed.
[2020-04-09 07:05] LABS: BASO % 0.7 % (0.0-2.0); EOS # 0.5 (0.0-0.7); GRAN # 2.1 (1.4-6.5); GRAN % 49.5 % (42.2-75.2); HEMOGLOBIN 10.6 g/dl (13.5-18.0); LYMPH % 21.9 % (20.0-51.0); MEAN CELL VOLUME 104 fl (80.0-100.0); MEAN CORPUSCULAR HEMOGLOBIN 31 pg (27.0-31.0); MEAN CORPUSCULAR HGB CONC 30 g/dl (33.0-37.0); MEAN PLATELET VOLUME 10.4 fl (7.4-10.4); MONO # 0.7 (0.1-0.6); MONO % 15.7 % (1.7-9.3); PLATELET COUNT 203 K/mm3 (130-400); RED BLOOD COUNT 3.44 M/mm3 (4.20-5.60)
[2020-04-09 07:21] LABS: HEMATOCRIT 35.8 % (42.0-52.0)
[2020-04-09 07:23] LABS: CALCIUM 8.2 mg/dL (8.4-10.2); CREATININE, serum 3.85 (0.66-1.25); MAGNESIUM 2.2 mg/dL (1.6-2.3); POTASSIUM 4.9 mmol/L (3.4-5.0)
[2020-04-09 07:45] VITALS: BP 101/55; PULSE 59; TEMP 97.8
--- NOTE | 2020-04-09 08:00 | NUR ---
Patient in bed resting. Alert and oriented x 3. Assessment complete. Denies pain at this time. Fistula to right forarm with bruit and thrill present. Denies pain at this time. Denies further needs at this time.
--- NOTE | 2020-04-09 08:15 | NUR ---
Patient to dialysis
--- NOTE | 2020-04-09 10:30 | NUR ---
Several visit attempts; Air Box Tester left 'prayer card' of hope with her name and information regarding the availability of spiritual care at our hospital.
[2020-04-09 12:15] VITALS: BP 144/70; PULSE 67; TEMP 97.8
--- NOTE | 2020-04-09 12:25 | NUR ---
Patient tolerated HD tx well, removed 500 mL of fluid. Next tx planned for Sunday04/12/20 @ 0800.
[2020-04-09 16:00] VITALS: BP 118/56; PULSE 64; TEMP 98
--- NOTE | 2020-04-09 18:14 | NUR ---
Patient has done well throughout the day, fiorenef given this afternoon for headache. States relief at this time. Patient independent in the room. Ordering supper at this time. Denies further needs at this time. Will report off to product advisor.
[2020-04-09 20:20] VITALS: BP 117/60; PULSE 71; TEMP 97.4
--- NOTE | 2020-04-09 21:30 | NUR ---
PT TAKES HS MEDS, WANTS TO WAIT TIL 2300 TO TAKE RESTORIL AND FIORECET. REPORTS HEADACHE IS ALMOST GONE. HAS SL TO LEFT HAND FLUSHES WELL. INDEPENDENT IN ROOM. RT FOREARM FISTULA WITH GOOD THRILL AND BRUIT.
--- NOTE | 2020-04-09 23:30 | NUR ---
FIORECET AND RESTORIL GIVEN. PT READY FOR SLEEP.
[2020-04-09 23:36] VITALS: BP 141/63; PULSE 79; TEMP 98.1
[2020-04-10 04:15] VITALS: BP 112/59; PULSE 58; TEMP 97.5
--- NOTE | 2020-04-10 05:30 | NUR ---
EKG OBTAINED AFTER PAUSING HIS PAIN PUMP. RESTARTED AFTER EKG COMPLETED. TAKES AM MED WITHOUT PROBLEM.
[2020-04-10 06:21] LABS: BASO % 0.7 % (0.0-2.0); EOS # 0.4 (0.0-0.7); EOS % 9.2 % (0-4.0); GRAN # 2.1 (1.4-6.5); GRAN % 49.8 % (42.2-75.2); HEMOGLOBIN 10.6 g/dl (13.5-18.0); LYMPH % 24.5 % (20.0-51.0); MEAN CELL VOLUME 102 fl (80.0-100.0); MEAN CORPUSCULAR HEMOGLOBIN 31 pg (27.0-31.0); MEAN CORPUSCULAR HGB CONC 30 g/dl (33.0-37.0); MEAN PLATELET VOLUME 10.2 fl (7.4-10.4); MONO # 0.7 (0.1-0.6); MONO % 15.8 % (1.7-9.3); PLATELET COUNT 186 K/mm3 (130-400); RED BLOOD COUNT 3.44 M/mm3 (4.20-5.60); REDCELL DISTRIBUTION WIDTH-CV 15.9 % (11.5-14.5)
[2020-04-10 06:25] LABS: HEMATOCRIT 35.2 % (42.0-52.0)
[2020-04-10 06:32] LABS: CALCIUM 8.4 mg/dL (8.4-10.2); CREATININE, serum 3.09 (0.66-1.25); POTASSIUM 4.7 mmol/L (3.4-5.0)
[2020-04-10 06:38] LABS: INR 1.4 (0.8-3.0); PROTHROMBIN TIME 15.2 SECONDS (9.7-12.8)
[2020-04-10 08:02] VITALS: BP 91/54; PULSE 54; TEMP 97.6
[2020-04-10 11:40] VITALS: BP 106/65; PULSE 63; TEMP 97.9
--- NOTE | 2020-04-10 11:43 | NUR ---
REPORT TO DELTA HAN.
--- NOTE | 2020-04-10 13:00 | NUR ---
Dr. Vaughn in to see patient.
[2020-04-10 15:58] VITALS: BP 109/61; PULSE 62; TEMP 97.8
--- NOTE | 2020-04-10 18:10 | NUR ---
Patient doing well, minimal needs. Independent in room. Denies pain at this time. Will report off to fast food shift supervisor.
[2020-04-10 19:45] VITALS: BP 142/51; PULSE 72; TEMP 97.9
[2020-04-10 23:38] VITALS: BP 117/59; PULSE 65; TEMP 99.2
[2020-04-11 03:55] VITALS: BP 130/66; PULSE 66; TEMP 99
[2020-04-11 06:49] LABS: BASO % 0.8 % (0.0-2.0); EOS # 0.5 (0.0-0.7); EOS % 10.4 % (0-4.0); GRAN # 2.5 (1.4-6.5); GRAN % 50.8 % (42.2-75.2); HEMATOCRIT 38.1 % (42.0-52.0); HEMOGLOBIN 11.5 g/dl (13.5-18.0); LYMPH # 1.1 (1.2-3.4); LYMPH % 21.7 % (20.0-51.0); MEAN CELL VOLUME 101 fl (80.0-100.0); MEAN CORPUSCULAR HEMOGLOBIN 31 pg (27.0-31.0); MEAN CORPUSCULAR HGB CONC 30 g/dl (33.0-37.0); MEAN PLATELET VOLUME 10.6 fl (7.4-10.4); MONO # 0.8 (0.1-0.6); MONO % 16.1 % (1.7-9.3); PLATELET COUNT 211 K/mm3 (130-400); RED BLOOD COUNT 3.76 M/mm3 (4.20-5.60); REDCELL DISTRIBUTION WIDTH-CV 15.8 % (11.5-14.5)
[2020-04-11 07:06] LABS: INR 1.3 (0.8-3.0); PROTHROMBIN TIME 14.7 SECONDS (9.7-12.8)
[2020-04-11 07:11] LABS: CALCIUM 8.7 mg/dL (8.4-10.2); CREATININE, serum 3.95 (0.66-1.25); MAGNESIUM 2.2 mg/dL (1.6-2.3); POTASSIUM 5.2 mmol/L (3.4-5.0)
[2020-04-11 07:20] VITALS: BP 120/59; PULSE 60; TEMP 98.3
--- NOTE | 2020-04-11 08:30 | NUR ---
PT UP IN BED ATE BREAKFAST. VSS, PT DENIES PAIN OR NEEDS. ASSESSMENTS WNL. PROVIDED EDUCATION ON FLUID RESTRICTION. PT VERBALIZED UNDERSTANDING. DIALYSIS TOMMORROW THEN DISCHARGE HOME AFTER.
[2020-04-11 11:14] VITALS: BP 100/56; PULSE 65; TEMP 97.9
[2020-04-11 15:36] VITALS: BP 113/63; PULSE 64; TEMP 97.6
[2020-04-11 22:14] VITALS: BP 115/51; PULSE 69; TEMP 98.6
--- NOTE | 2020-04-11 22:36 | NUR ---
PT READY FOR HS MEDS. IS ALERT AND ORIENTED X4. HAS SL TO LEFT HAND, FLUSHES OK. TAKES SCHEDULED MEDS INCLUDING ZANAFLEX, FIORICET AND BENADRYL 25MG FOR ITCH AT THIS TIME. HAS RT FOREARM AV FISTULA. MAINTAINING FLUID RESTRICTION.
[2020-04-11 23:46] VITALS: BP 111/67; PULSE 64; TEMP 98.1
[2020-04-12 04:00] VITALS: BP 92/52; PULSE 57; TEMP 97.4
[2020-04-12 04:24] VITALS: BP 151/63; PULSE 53; TEMP 97.7
[2020-04-12 06:02] LABS: BASO % 0.7 % (0.0-2.0); EOS # 0.5 (0.0-0.7); EOS % 10.1 % (0-4.0); GRAN # 2.4 (1.4-6.5); GRAN % 51.8 % (42.2-75.2); HEMOGLOBIN 10.9 g/dl (13.5-18.0); LYMPH % 22.8 % (20.0-51.0); MEAN CELL VOLUME 104 fl (80.0-100.0); MEAN CORPUSCULAR HEMOGLOBIN 31 pg (27.0-31.0); MEAN CORPUSCULAR HGB CONC 30 g/dl (33.0-37.0); MEAN PLATELET VOLUME 10.3 fl (7.4-10.4); MONO # 0.7 (0.1-0.6); MONO % 14.4 % (1.7-9.3); PLATELET COUNT 184 K/mm3 (130-400); RED BLOOD COUNT 3.54 M/mm3 (4.20-5.60); REDCELL DISTRIBUTION WIDTH-CV 15.8 % (11.5-14.5)
[2020-04-12 06:05] LABS: HEMATOCRIT 36.9 % (42.0-52.0)
[2020-04-12 06:11] LABS: CALCIUM 8.3 mg/dL (8.4-10.2); CREATININE, serum 4.49 (0.66-1.25); INR 1.3 (0.8-3.0); POTASSIUM 4.9 mmol/L (3.4-5.0); PROTHROMBIN TIME 14.9 SECONDS (9.7-12.8)
[2020-04-12 08:00] VITALS: BP 135/65; PULSE 70; TEMP 98.2
--- NOTE | 2020-04-12 08:00 | NUR ---
Patient in bed resting. Alert and oriented x 3. Planning for dialysis this AM. Denies pain at this time. Fistula to RUE. INT to left hand. Denies needs at this time.
--- NOTE | 2020-04-12 09:10 | NUR ---
Patient ambulated to dialysis with SBA.
[2020-04-12] MEDS ORDERED: PACERONE200 MG PO (10:53)
[2020-04-12 11:33] VITALS: BP 145/48; PULSE 75; TEMP 98.1
--- NOTE | 2020-04-12 13:25 | NUR ---
Discharge education provided to patient. Educated on when to call provider and medication changes. Educated on follow up appointments. Denies pain or furhter needs at this time. Patient out by wheelchair with surgical staff. Reviewed discharge information with patient spouse as well.
== END 2020-04-12 13:25 | disposition home or self-care (01) | DRG 308 ==
LOC: JCC 04-08 08:05 → MEDICAL 04-08 16:17 → JCC 04-08 23:00
PROVIDERS: ADMIT Internal Medicine Cardiovascular Disease
PROC: 5A1D70Z Performance of Urinary Filtration, Intermittent, Less than 6 Hours Per Day (ICD-10-PCS; principal; 2020-04-09)
DX: I48.91 Unspecified atrial fibrillation (principal); N18.6 End stage renal disease; I12.0 Hypertensive chronic kidney disease with stage 5 chronic kidney disease or end stage renal disease; E78.5 Hyperlipidemia, unspecified; M19.90 Unspecified osteoarthritis, unspecified site; M79.7 Fibromyalgia; N40.0 Benign prostatic hyperplasia without lower urinary tract symptoms; G43.909 Migraine, unspecified, not intractable, without status migrainosus; D63.1 Anemia in chronic kidney disease; G89.29 Other chronic pain; K21.9 Gastro-esophageal reflux disease without esophagitis; Z79.01 Long term (current) use of anticoagulants; Z99.2 Dependence on renal dialysis
CPT/HCPCS: J1644; J2916; J7030; Q5105

== ENCOUNTER 2020-04-24 16:39 | Emergency (ER) | payer MEDICARE, BC ==
[~2020-04-24] VITALS: Ht 172.7 cm; Wt 65.9 kg
[~2020-04-24 16:39] MED LIST changes: +AURYXIA1 GM PO; +CLARITIN 1010 MG/TAB PO; +PACERONE200 MG PO; +PRIL40 PO
[2020-04-24 16:55] VITALS: TEMP 98.1
[2020-04-24 17:16] LABS: BASO % 0.5 % (0.0-2.0); EOS # 0.2 (0.0-0.7); EOS % 2.6 % (0-4.0); GRAN # 5.3 (1.4-6.5); GRAN % 82.4 % (42.2-75.2); HEMATOCRIT 42.2 % (42.0-52.0); HEMOGLOBIN 12.6 g/dl (13.5-18.0); LYMPH # 0.3 (1.2-3.4); LYMPH % 4.3 % (20.0-51.0); MEAN CELL VOLUME 103 fl (80.0-100.0); MEAN CORPUSCULAR HEMOGLOBIN 31 pg (27.0-31.0); MEAN CORPUSCULAR HGB CONC 30 g/dl (33.0-37.0); MEAN PLATELET VOLUME 10.3 fl (7.4-10.4); MONO # 0.6 (0.1-0.6); MONO % 9.9 % (1.7-9.3); PLATELET COUNT 196 K/mm3 (130-400); RED BLOOD COUNT 4.09 M/mm3 (4.20-5.60); REDCELL DISTRIBUTION WIDTH-CV 15.9 % (11.5-14.5)
[2020-04-24 17:17] LABS: INR 1.3 (0.8-3.0); PROTHROMBIN TIME 14.3 SECONDS (9.7-12.8)
[2020-04-24 17:20] LABS: PARTIAL THROMBOPLASTIN TIME 31.9 SECONDS (26.0-37.0)
[2020-04-24 17:22] LABS: ALANINE AMINOTRANSFERASE 12 U/L (4-49); ALKALINE PHOSPHATASE 113 U/L (50-136); ANION GAP 10 mmol/L (7-16); AST,SGOT 21 U/L (15-37); BILIRUBIN,TOTAL 0.4 mg/dL (0.0-1.0); BLOOD UREA NITROGEN 25 mg/dL (9-20); CALCIUM 8.4 mg/dL (8.4-10.2); CARBON DIOXIDE 23 mmol/L (22-30); CHLORIDE 105 mmol/L (98-107); CREATININE, serum 3.44 (0.66-1.25); GLUCOSE 118 mg/dL (74-106); POTASSIUM 4.4 mmol/L (3.4-5.0); SODIUM 137 mmol/L (137-145); TOTAL PROTEIN 6.9 gm/dL (6.4-8.2)
[2020-04-24 17:34] LABS: TROPONIN-I < 0.012 ng/mL (0.000-0.035)
[2020-04-24 20:31] VITALS: BP 154/70; PULSE 78
== END 2020-04-24 20:31 | disposition home or self-care (01) ==
LOC: COL.ER 16:39
PROVIDERS: Family Medicine
DX: R07.9 Chest pain, unspecified (principal); K59.00 Constipation, unspecified; G43.909 Migraine, unspecified, not intractable, without status migrainosus; G89.29 Other chronic pain; M54.5 Low back pain; N40.0 Benign prostatic hyperplasia without lower urinary tract symptoms; F32.9 Major depressive disorder, single episode, unspecified; N18.9 Chronic kidney disease, unspecified; I48.91 Unspecified atrial fibrillation; Z99.2 Dependence on renal dialysis; Z88.8 Allergy status to other drugs, medicaments and biological substances; Z87.891 Personal history of nicotine dependence; Z79.01 Long term (current) use of anticoagulants
CPT/HCPCS: J2405; J3010

== ENCOUNTER 2020-06-22 08:06 | Outpatient (CLI) | payer MEDICARE, BC ==
[~2020-06-22] VITALS: Ht 172.7 cm; Wt 65.1 kg
[2020-06-22] MEDS ORDERED: CORDARONE200 MG/TAB PO (08:30)
[2020-06-22] MEDS ORDERED: ZETIA 10MG TAB10 MG PO (08:32)
[2020-06-22 08:45] VITALS: BP 128/68; PULSE 71; TEMP 98.3
[2020-06-22 08:49] LABS: MEAN CELL VOLUME 100 fl (80.0-100.0); MEAN CORPUSCULAR HEMOGLOBIN 30 pg (27.0-31.0); MEAN CORPUSCULAR HGB CONC 30 g/dl (33.0-37.0); MEAN PLATELET VOLUME 9.6 fl (7.4-10.4); PLATELET COUNT 232 K/mm3 (130-400); RED BLOOD COUNT 3.37 M/mm3 (4.20-5.60); REDCELL DISTRIBUTION WIDTH-CV 15.9 % (11.5-14.5)
[2020-06-22] MEDS ORDERED: MORPHINE 10M10 MG/ML IJ (08:52)
[2020-06-22] MEDS ORDERED: POLYMYXIN B/TRIMETH OD (08:54)
[2020-06-22 08:55] LABS: HEMATOCRIT 33.7 % (42.0-52.0)
[2020-06-22] MEDS ORDERED: PREDFORTE5ML OD (08:55)
[2020-06-22 08:58] LABS: CALCIUM 7.8 mg/dL (8.4-10.2); CREATININE, serum 3.29 (0.66-1.25); POTASSIUM 4.1 mmol/L (3.4-5.0)
[2020-06-22 09:27] LABS: INR 1.2 (0.8-3.0); PROTHROMBIN TIME 13.1 SECONDS (9.7-12.8)
[2020-06-22 10:15] VITALS: BP 105/61; PULSE 66
[2020-06-22 10:30] VITALS: BP 105/61; PULSE 66
[2020-06-22 10:45] VITALS: BP 108/65; PULSE 63
[2020-06-22 11:00] VITALS: BP 125/70; PULSE 68
[2020-06-22 11:15] VITALS: BP 121/70; PULSE 67
--- NOTE | 2020-06-22 11:30 | NUR ---
DC instructions were reviewed with pt and , both express understanding. Pt is steady on feet with cane. Has tolerated water and jello without issue. IV DC'd with catheter intact, bleeding controlled at site. He is assisted out to 's car by wheelchair.
== END 2020-06-22 12:12 | disposition home or self-care (01) ==
LOC: COL.RAD 08:06
PROVIDERS: Internal Medicine Cardiovascular Disease
DX: Z45.09 Encounter for adjustment and management of other cardiac device (principal)
CPT/HCPCS: J2704

== ENCOUNTER → 2020-11-16 | Outpatient (CLI) | payer MEDICARE, BC ==
[~2020-11-16] MED LIST changes: +CORDARONE200 MG/TAB PO; +POLYMYXIN B/TRIMETH OD; +PREDFORTE5ML OD
== END ==
LOC: COL.VAS 12:54
DX: I73.9 Peripheral vascular disease, unspecified (principal)

== ENCOUNTER → 2020-12-09 | Outpatient (CLI) | payer MEDICARE, BC | LOC: COL.RAD 12-07 13:00 | DX: M17.11 Unilateral primary osteoarthritis, right knee (principal); M25.552 Pain in left hip; Z98.890 Other specified postprocedural states ==

== ENCOUNTER 2021-06-21 14:24 | Outpatient (RCR) | payer MEDICARE, BC | END 2021-06-25 | disposition home or self-care (01) | LOC: WSOT | DX: M25.541 Pain in joints of right hand (principal) ==

== ENCOUNTER 2021-07-19 13:00 | Outpatient (RCR) | payer MEDICARE, BC | END 2021-07-26 | disposition home or self-care (01) | LOC: WSOT | DX: M25.541 Pain in joints of right hand (principal) ==

== ENCOUNTER 2021-09-29 14:49 | Emergency (ER) | payer MEDICARE, BC ==
[~2021-09-29] VITALS: Ht 170.2 cm; Wt 64.5 kg
[2021-09-29 14:54] VITALS: BP 133/66; TEMP 99
[2021-09-29] MEDS ORDERED: CEPHALEXIN500 M1 PO (15:39)
[2021-09-29 16:11] VITALS: PULSE 76
== END 2021-09-29 16:11 | disposition home or self-care (01) ==
LOC: COL.ER 14:49
DX: L03.011 Cellulitis of right finger (principal); Z87.891 Personal history of nicotine dependence

== ENCOUNTER 2022-04-10 09:27 | Emergency (ER) | payer MEDICARE, BC ==
[~2022-04-10] VITALS: Ht 175.3 cm; Wt 63.6 kg
[~2022-04-10 09:27] MED LIST changes: +ALEVE 220MG220 MG PO; +ASPIRIN E.C. 8181 MG PO; +CEPHALEXIN500 M1 PO; +CYMBALTA 30MG30 MG PO; +PREVACID 15MG15 M1 PO; +RELAFEN 50500 MG/TAB PO
[2022-04-10 09:38] VITALS: TEMP 97.9
[2022-04-10] MEDS ORDERED: NORCO 325 MG-51 TAB PO (11:29)
[2022-04-10 12:47] VITALS: BP 128/70; PULSE 84
== END 2022-04-10 12:50 | disposition home or self-care (01) ==
LOC: COL.ER 09:27
DX: M25.461 Effusion, right knee (principal); N18.6 End stage renal disease; Z99.2 Dependence on renal dialysis; Z28.310 Unvaccinated for COVID-19; W18.30XA Fall on same level, unspecified, initial encounter; X50.1XXA Overexertion from prolonged static or awkward postures, initial encounter; Y93.01 Activity, walking, marching and hiking

== ENCOUNTER 2022-05-08 07:35 | Inpatient (IN) | payer MEDICARE, BC ==
[~2022-05-08] VITALS: Ht 172.7 cm; Wt 56.8 kg
[2022-05-08 08:27] LABS: HEMOGLOBIN 11.2 g/dl (13.5-18.0); MEAN CELL VOLUME 111 fl (80.0-100.0); MEAN CORPUSCULAR HEMOGLOBIN 35 pg (27-31); MEAN CORPUSCULAR HGB CONC 32 g/dl (33.0-37.0); MEAN PLATELET VOLUME 9.6 fl (7.4-10.4); PLATELET COUNT 359 K/mm3 (130-400); REDCELL DISTRIBUTION WIDTH-CV 20.1 % (11.5-14.5)
[2022-05-08 08:30] LABS: HEMATOCRIT 35.5 % (42.0-52.0)
[2022-05-08 08:40] LABS: PROTHROMBIN TIME 11.1 SECONDS (9.7-12.8)
[2022-05-08 08:41] LABS: ALBUMIN 2.4 gm/dL (3.4-4.8); BILIRUBIN,TOTAL 0.2 mg/dL (0.2-1.2); C-REACTIVE PROTEIN 6.7 mg/dL (0.00-0.50); CALCIUM 8.3 mg/dL (8.4-10.2); CREATININE, serum 3.67 mg/dL (0.72-1.25); MAGNESIUM 2.2 mg/dL (1.6-2.6); POTASSIUM 4.9 mmol/L (3.5-4.5)
[2022-05-08 08:43] LABS: PARTIAL THROMBOPLASTIN TIME 25.9 SECONDS (26.0-37.0)
[2022-05-08 08:47] LABS: TROPONIN-I 0.031 ng/mL (0.00-0.033)
[2022-05-08 09:10] LABS: ANISOCYTOSIS 2+; BAND 18 % (0-10); BASOPHIL 2 % (0-2); EOSINOPHIL 13 % (0-4); LYMPHOCYTE 12 % (20.0-51.0); METAMYELOCYTE 1 % (0-0); NEUTROPHILS 34 % (42.0-75.2); PLATELET ESTIMATE NORMAL (NORMAL)
[2022-05-08 09:11] LABS: HYPOCHROMIA 2+
[2022-05-08 09:13] LABS: TARGET CELLS 1+
[2022-05-08 09:15] LABS: SCHISTOCYTES 1+
[2022-05-08 13:13] VITALS: BP 143/62; PULSE 76; TEMP 97.7
[2022-05-08] MEDS ORDERED: FIORICET 325 MG1 TA1 PO (13:55)
--- NOTE | 2022-05-08 14:16 | NUR ---
PT ADMITTED TO MEDICAL UNIT AT THIS TIME. ADMISSION INTAKE AND ASSESSMENT COMPLETED. MED REC UPDATED. FAMILY MEMBERS AT BEDSIDE. PT REPORTS PAIN TO ABDOMEN, REQUESTING PAIN MEDICATIONS. THIS RN WAITING FOR MEDICATIONS ORDERS TO BE VERIFIED. ORIENTED PT TO ROOM AND CALL LIGHT. BED ALARMS IN PLACE. WILL CONTINUE TO MONITOR.
[2022-05-08 16:00] VITALS: BP 128/58; PULSE 81; TEMP 97.7
[2022-05-08 19:20] VITALS: BP 96/44; BP 96/47; PULSE 79; TEMP 98.1
[2022-05-08 19:39] VITALS: BP 101/47; PULSE 78
--- NOTE | 2022-05-08 21:56 | NUR ---
Patient assessed around 1939. Complained of headache, and given PRN Acetaminophen as requested. Peripheral INT to left forearm. AV fistula to right forearm. Plan for HD tomorrow. Denies SOB and dyspnea. Was at 88% on room air. Put on oxygen at 2 L/min via NC, increased to 93%. RT notified. Voices no further questions, needs, or concerns at this time. In bed with call light within reach. High fall risk precautions in place. Bed alarm on.
[2022-05-08 23:09] VITALS: BP 103/58; PULSE 85; TEMP 98.2
[2022-05-09 00:16] LABS: COLLECTION METHOD CLEAN CATCH
[2022-05-09 00:22] LABS: SQUAMOUS EPITHELIAL 0-2 /hpf (0-10); URINE BACTERIA None Seen /hpf (NONE SEEN); URINE RBC None Seen /hpf (0-2)
[2022-05-09 00:23] LABS: PH 5.5 (5.0-8.5); URINE APPEARANCE Clear (CLEAR/HAZY); URINE COLOR Yellow (YELLOW)
[2022-05-09 00:24] LABS: URINE BLOOD Negative (NEGATIVE); URINE GLUCOSE Negative (NEGATIVE); URINE KETONE TRACE (NEGATIVE); URINE NITRATE Negative (NEGATIVE); URINE PROTEIN(semi-quant) 1+ (NEGATIVE); URINE UROBILINOGEN 0.2 E.U/dL (0.2-1.0)
[2022-05-09 03:29] VITALS: BP 113/65; PULSE 73; TEMP 98.5
--- NOTE | 2022-05-09 05:27 | NUR ---
Patient given PRN Fiorcet and Benadryl as requested during the night. Voices no further questions, needs, or concerns at this time. In bed with call light within reach. Bed alarm on. Would not turn onto side during the night, stating that he is not comfortable and can not sleep on side. Explained to patient that he has a sore on his bottom, and it will only get worse with not repositioning. Voices understanding, but continues to refuse to lay on sides. In bed with call light within reach. Bed alarm on.
--- NOTE | 2022-05-09 07:50 | NUR ---
Pt in bed. Morning medications administered per eMAR. Shift assessment completed. VSS. Pt currently on 1L per NC with O2 sats WNL. INT in L forearm remains patent; no edema or redness. Bruit & thrill noted on R forearm. Pt is currently using a k-pad for ABD pain. Pt c/o pain "all over" 11/05. notified, no new orders given.
[2022-05-09 07:52] VITALS: BP 127/64; PULSE 80; TEMP 98.3
--- NOTE | 2022-05-09 08:40 | NUR ---
Pt to dialysis at this time.
--- NOTE | 2022-05-09 09:23 | NUR ---
Initial visit; Patient states he is in terrible pain and just wants to . He asked for prayer to . Asphalt Spreader Operator offered prayer for cessation of pain and for his body to be spared then she and patient prayed "The Lord's Prayer" together before his nurse came in.
[2022-05-09 12:47] VITALS: BP 104/64; PULSE 93; TEMP 98.1
--- NOTE | 2022-05-09 14:35 | NUR ---
PK contacted the patient's daughter, Cee Marcelo (ph#[phone]), to discuss discharge plan. The patient lives in [place] with his , Alexa (ph#[phone]). Cee also lives in [place]. Cee states that the patient primarily uses a wheelchair for ambulation and needs assistance with ADLs. She states that Alexa gives the patient sponge baths. The patient does not have any in-home/home health services. Cee states that the patient does receive dialysis and his chair time is on M/W/F and believes it starts at 1000. The patient's PCP is Dr. Hector Najera and he receives his medications from [facility]. The patient's DPOA-HC is in EMR and it designates his and Cee. Cee states that they are interested in SNF for the patient. She shares that she is actually at [facility] She states their first preference is 1) [facility] 2) [facility]. PK contacted and faxed a referral to both facilities. Awaiting screens. *Discharge plan: SNF. Referrals out*
--- NOTE | 2022-05-09 15:43 | NUR ---
Per orders - called Alexa (spouse) and Cee (daughter) to visit with pt 05/10 at [address] a discussion with Dr. Vaughn. Alexa and Cee agreeable to meet.
[2022-05-09 15:46] VITALS: BP 105/54; PULSE 87; TEMP 97.8
[2022-05-09 19:36] VITALS: BP 100/56; PULSE 84; TEMP 98.1
--- NOTE | 2022-05-09 21:56 | NUR ---
Patient remains on oxygen at 1.5 L/min via NC. Continues to have moist cough, but LS remain clear at this time. Denies SOB and dyspnea. Complaining of pain. This nurse asked daughter about the last night pain pump was filled or when his next appointment was, and stated that it was supposed to be filled today. Stated she would call the office tomorrow and see if they would be able to fill while here in the hospital to help decrease pain. Patient tearful later on about needing to have placement and having to leave his home. Listened to patient, and patient thanked this nure for cares. Encouraged to call for any questions, needs, or concerns, or if he just needed someone to talk to, and voiced understanding. In bed with call light within reach. High fall risk precautions in place. Bed alarm on.
[2022-05-09 23:17] VITALS: BP 114/63; PULSE 86; TEMP 98.2
[2022-05-10 03:40] VITALS: BP 118/60; PULSE 80; TEMP 97.7
--- NOTE | 2022-05-10 05:30 | NUR ---
Received PRN pain medications and medications for sleeping as requested during the night per orders. Continues to have all over pain, but reports it is better than beginning of shift. Continues on oxygen at 1 L/min via NC. RT attempted to wean to room air, but did desat while sleeping. In bed with call light within reach. High fall risk precautions in place. Bed alarm on.
[2022-05-10 06:19] LABS: MEAN CELL VOLUME 109 fl (80.0-100.0); MEAN CORPUSCULAR HGB CONC 31 g/dl (33.0-37.0); MEAN PLATELET VOLUME 9.2 fl (7.4-10.4); PLATELET COUNT 289 K/mm3 (130-400); RED BLOOD COUNT 2.76 M/mm3 (4.20-5.60); REDCELL DISTRIBUTION WIDTH-CV 19.7 % (11.5-14.5)
[2022-05-10 06:22] LABS: HEMATOCRIT 30.1 % (42.0-52.0); HEMOGLOBIN 9.4 g/dl (13.5-18.0); MEAN CORPUSCULAR HEMOGLOBIN 34 pg (27-31)
[2022-05-10 06:45] LABS: ALBUMIN 2.1 gm/dL (3.4-4.8); CALCIUM 7.8 mg/dL (8.4-10.2); CREATININE, serum 3.24 mg/dL (0.72-1.25); POTASSIUM 4.3 mmol/L (3.5-4.5)
[2022-05-10 06:46] LABS: ANISOCYTOSIS 2+; EOSINOPHIL 11 % (0-4); HYPOCHROMIA 1+; LYMPHOCYTE 26 % (20.0-51.0); NEUTROPHILS 30 % (42.0-75.2); PLATELET ESTIMATE NORMAL (NORMAL)
[2022-05-10 06:50] LABS: OVALOCYTES 1+; TARGET CELLS 1+
--- NOTE | 2022-05-10 06:55 | NUR ---
appears to be sleepint, bedside shift report received from EMELY Wilkins
[2022-05-10 08:00] VITALS: BP 121/64; PULSE 84; TEMP 98
--- NOTE | 2022-05-10 08:50 | NUR ---
sitting up in bed eating breakfast, medicated with fioricit 1 tab for c/os pain
--- NOTE | 2022-05-10 11:02 | NUR ---
physical therapy in to work with patient, therapy states was mod 1 assist to stand and into recliner, resting now in recliner
--- NOTE | 2022-05-10 11:29 | NUR ---
sitting up in recliner, denies needs at this time
[2022-05-10 11:32] VITALS: BP 124/65; PULSE 82; TEMP 97.9
--- NOTE | 2022-05-10 12:41 | NUR ---
remains up in chair, appears to be sleeping, resp quiet and easy
--- NOTE | 2022-05-10 13:31 | NUR ---
bedside shift report given to EMELY Amin
--- NOTE | 2022-05-10 14:45 | NUR ---
Report received from EMELY Phelan. Per report, pt was due to have his pain pumps refilled yesterday. Call placed to Dr. Meza's office at [facility]. Message left nurse for to return my call.
--- NOTE | 2022-05-10 15:43 | NUR ---
Dr. Vaughn approached PK to inquire when [facility] can take the patient and to clarify inpatient status. PK staffed with keno clerk. Dr. Vaughn ordered and signed for inpatient status on 05/08. PK informed Dr. Vaughn of this. Dr. Vaughn plans to discharge the patient tomorrow. PK notified and faxed updates to Broderick at [facility]. PK contacted and updated the patient's daughter, Cee. Cee is in agreement to the plan.
[2022-05-10 16:00] VITALS: BP 119/62; PULSE 85; TEMP 97.8
--- NOTE | 2022-05-10 16:37 | NUR ---
Pt complaining of sacral pain rating it an 8/10, given PRN tramadal 50mg. Dressing change on sacrum and cleaned with NS, repositioned with pillow on right side. Blanchable skin noted on bony prominence to sacrum, skin is intact, foam dressing applied for pressure relief. Call light in reach
--- NOTE | 2022-05-10 18:09 | NUR ---
Dr. Meza's office was called at approx 1500 today to inquire about refills for pt's pain pump. Message was left for office to call back.
--- NOTE | 2022-05-10 18:16 | NUR ---
Pt sitting up in bed with family at bedside. Pt didnt enjoy dinner and is currently waiting on a new tray. Pt reports sacral pain/discomfort a 6/10 and offered PRN tylenol.
--- NOTE | 2022-05-10 18:27 | NUR ---
Pt given PRN extra strength Tylenol 500mg for sacral pain/discomfort. Currently waiting for new dinner tray
[2022-05-10 19:40] VITALS: BP 91/49; PULSE 77; TEMP 98.3
--- NOTE | 2022-05-10 22:35 | NUR ---
Patient assesssed around 2100. Complained of leve 8 generalized pain. Given PRN Fiorcet as requested. On oxygen at 1 L/min via NC. Not wanting to be repositioned in bed. Voices no questions, needs, or concenrs at this time. In bed with call light within reach. High fall risk precautions in place. Bed alarm on.
[2022-05-10 23:22] VITALS: BP 96/54; PULSE 71; TEMP 98.5
[2022-05-11 03:45] VITALS: BP 96/51; PULSE 75; TEMP 98.2
--- NOTE | 2022-05-11 05:41 | NUR ---
Received PRN pain medication as requested during the night, as well as sleeping medication. Complained of consipation, and given PRN Biscodyl. Voices no further questions, needs, or concerns at this time. In bed with call light within reach. High fall risk precautions in place. Bed alarm on.
[2022-05-11 07:14] LABS: ALBUMIN 1.9 gm/dL (3.4-4.8); CALCIUM 7.6 mg/dL (8.4-10.2); CREATININE, serum 3.82 mg/dL (0.72-1.25); POTASSIUM 4.3 mmol/L (3.5-4.5)
[2022-05-11 07:20] LABS: MEAN CELL VOLUME 109 fl (80.0-100.0); MEAN CORPUSCULAR HGB CONC 31 g/dl (33.0-37.0); MEAN PLATELET VOLUME 9.5 fl (7.4-10.4); PLATELET COUNT 315 K/mm3 (130-400); RED BLOOD COUNT 2.59 M/mm3 (4.20-5.60); REDCELL DISTRIBUTION WIDTH-CV 19.3 % (11.5-14.5)
[2022-05-11 07:21] LABS: HEMATOCRIT 28.3 % (42.0-52.0); HEMOGLOBIN 8.9 g/dl (13.5-18.0); MEAN CORPUSCULAR HEMOGLOBIN 34 pg (27-31)
[2022-05-11 07:48] LABS: BAND 4 % (0-10); EOSINOPHIL 20 % (0-4); LYMPHOCYTE 23 % (20.0-51.0); NEUTROPHILS 31 % (42.0-75.2); PLATELET ESTIMATE NORMAL (NORMAL)
[2022-05-11 07:49] LABS: OVALOCYTES 1+
[2022-05-11 08:00] VITALS: BP 106/59; PULSE 74; TEMP 97.8
--- NOTE | 2022-05-11 08:03 | NUR ---
Patient complains of constant pain prn provided. He states he has constipation too. Patient is lying in bed, alert and oriented. Assessment completed, mes provided. Pt knows schedule time for dialysis.
--- NOTE | 2022-05-11 09:05 | NUR ---
Pt is in dialysis now.
--- NOTE | 2022-05-11 09:22 | NUR ---
Follow-up; Patient appeares somewhat disgruntled that he has had to stay in the hospital for what seems to him weeks on end. Patient thanked Cured Meat Packing Supervisor for listening and offering comfort, explanation why he has been here for eleven days; the Physicians will not send him home until they are certain the antibiotic has worked and he is 100% well. He understands, he said and thanked Cured Meat Packing Supervisor for visiting.
[2022-05-11 12:28] VITALS: BP 117/58; PULSE 73; TEMP 97.8
--- NOTE | 2022-05-11 12:45 | NUR ---
Patient is back to the unit after dialysis. Stage 1 pressure ulcer 2x3cm on the right side of buttock next to coccyx bone. It is surrounded by reddened skin. Covered with mepilex dressing.
--- NOTE | 2022-05-11 15:33 | NUR ---
Broderick, at [facility], requested notes on the patient's wound. PK collaborated with the patient's RN and obtained a note on the wound. PK faxed the note and updates to Broderick at [facility]. Broderick states that they are able to accept the patient. The patient's RN then notified PK this afternoon that the patient and his family have decided to transition to comfort care and would like to pursue hospice. PK met with the patient, his , and daughter (Cee). The patient and his family confirm their decision for hospice. PK informed them of the options for hospice at a facility (like [facility]), the hospice house, and hospice at home. The patient's shares that she lives next to the hospice house. They are interested in the hospice house. PK contacted and faxed a referral to Sada and Zeb at [facility]. Sada states that they are pretty full right now. They will review the referral and let us know if and when they can take. PK updated the patient's family and RN.
--- NOTE | 2022-05-11 22:20 | NUR ---
Pt seemed okay during shift change, family left at that time. Pt now having complaints of pain in his hands mostly, but then states he just hurts all over. Pt seems rather frustrated, but just states that he is done with it all. Pt now stating that he just wants to leave to go home tomorrow. PRN pain medications given as requested as well as benadryl to help with sleeping.
--- NOTE | 2022-05-12 04:54 | NUR ---
Pt has slept off and on through the night. He did not have the complaints of pain as he did at the beginning of the shift through evening. Pt used urinal to void. No needs verbalized, call light within reach
--- NOTE | 2022-05-12 06:00 | NUR ---
Pt did ring call light stating he wanted something for his pain. PRN morphine given as pt appeared to be in quite a bit of pain. Pt moaning between words. Pt also repositioned at this time and bed bath given as well as some linens changed. Pt did have smear of black tarry stool. Pt then stated that he thought he needed to go to the bathroom but didn't know if it was to urinate or have bowel movement. Pt placed on bed tejeda. Pt has call light and bed alarm on
--- NOTE | 2022-05-12 08:20 | NUR ---
Patient is resting in bed, alert and oriented x 4, complains of generalized discomfort. Tramadol provided. States he is not hungre and refuses to order breakfast. Assessment completed. Continue monitoring.
[2022-05-12] MEDS ORDERED: ULTRAM 50MG TAB50 MG PO ×2 (14:48→15:28)
[2022-05-12] MEDS ORDERED: FIORICET 325 MG1 TA1 PO (14:49)
[2022-05-12] MEDS ORDERED: COMPAZINE25 MG/SUPP RC (14:50)
[2022-05-12] MEDS ORDERED: DULCOLAX TAB5 MG PO (14:50)
[2022-05-12] MEDS ORDERED: TRANSDERM-0.5 MG/21 TD (14:51)
[2022-05-12] MEDS ORDERED: ATIVAN 0.50.5 MG/TAB PO ×2 (14:53→15:28)
[2022-05-12] MEDS ORDERED: HALDOL 1MG T1 MG/TAB PO (14:53)
[2022-05-12] MEDS ORDERED: ROXANOL 20MG20 MG/ML SL (15:02)
[2022-05-12] MEDS ORDERED: ROXANOL 20MG20 MG/ML PO (15:28)
--- NOTE | 2022-05-12 15:41 | NUR ---
Patient was picked up by EMS. PPW provided.
--- NOTE | 2022-05-12 16:05 | NUR ---
Zeb, at [facility], reports that they are able to accept the patient today and request a 1515 hop picker. PK notified NAOMI Sherman. PK updated the patient's daughter, Cee. Cee and the patient's family are in agreement to the plan. PK presented Cee with the IM and EMS Consent Form. Cee verbalized understanding and signed both forms. The patient is to discharged today, 05/12, to the [facility]. Transportation provided by [facility]. No additional needs at this time.
== END 2022-05-12 15:43 | disposition hospice, home (50) | DRG 391 ==
LOC: COL.ER 07:35 → MEDICAL 11:18
PROVIDERS: Family Medicine; ADMIT Internal Medicine Nephrology
PROC: 5A1D70Z Performance of Urinary Filtration, Intermittent, Less than 6 Hours Per Day (ICD-10-PCS; principal; 2022-05-09)
DX: K31.9 Disease of stomach and duodenum, unspecified (principal); E43 Unspecified severe protein-calorie malnutrition; N18.6 End stage renal disease; I12.0 Hypertensive chronic kidney disease with stage 5 chronic kidney disease or end stage renal disease; K92.2 Gastrointestinal hemorrhage, unspecified; Z68.1 Body mass index [BMI] 19.9 or less, adult; K80.20 Calculus of gallbladder without cholecystitis without obstruction; Z66 Do not resuscitate; Z51.5 Encounter for palliative care; F32.A Depression, unspecified; F41.9 Anxiety disorder, unspecified; G89.29 Other chronic pain; W18.39XA Other fall on same level, initial encounter; Z20.822 Contact with and (suspected) exposure to COVID-19; M79.7 Fibromyalgia; K59.00 Constipation, unspecified; E78.00 Pure hypercholesterolemia, unspecified; G47.00 Insomnia, unspecified; G43.909 Migraine, unspecified, not intractable, without status migrainosus; N40.0 Benign prostatic hyperplasia without lower urinary tract symptoms; K21.9 Gastro-esophageal reflux disease without esophagitis; T39.395A Adverse effect of other nonsteroidal anti-inflammatory drugs [NSAID], initial encounter; L89.159 Pressure ulcer of sacral region, unspecified stage; D63.8 Anemia in other chronic diseases classified elsewhere; I48.91 Unspecified atrial fibrillation; Z99.2 Dependence on renal dialysis; Z90.89 Acquired absence of other organs; Y93.89 Activity, other specified; Y92.091 Bathroom in other non-institutional residence as the place of occurrence of the external cause; Z79.82 Long term (current) use of aspirin; Z88.1 Allergy status to other antibiotic agents; Z88.8 Allergy status to other drugs, medicaments and biological substances; Z87.891 Personal history of nicotine dependence; Z23 Encounter for immunization
CPT/HCPCS: OP; J1644; J2270; J2405; Q5105